=== PATIENT | male | born 1940 ===

== ENCOUNTER 2019-04-01 20:01 | Inpatient (IN) | payer MEDICARE, MEDICAID ==
[2019-04-01] VITALS (7 sets, daily range): BP systolic 131–155; BP diastolic 65–84
[~2019-04-01] VITALS: Ht 172.7 cm; Wt 60.3 kg
--- NOTE | 2019-04-01 20:15 | NUR ---
ICU/BAND SAW MARKER PT RECEIVED DIRECT ADMIT FROM [place]. PT WAS TRANSPORTED WITH DAUGHTER. PIERRE PAPERWORK PLACED IN CHART. SEE NURSING FLOWSHEET FOR ASSESSMENT. PT HAS 16 SKIN ISSUES WHICH WERE IDENTIFIED ALONE WITH INTERVENTIONS TO EACH. WOUND CONSULTATION WAS DONE. CONTACTED FOR ORDERS. WILL CONTINUE TO MONITOR THIS PT.
--- NOTE | 2019-04-01 20:30 | NUR ---
ICU/COMEDIAN UPON ARRIVAL TO UNIT PT SOUNDED CONGESTED. PT WAS DEEP SUCTIONED. THICK, WHITISH SPUTUM WAS SUCTIONED. WILL CONTINUE TO MONITOR THIS PT.
--- NOTE | 2019-04-01 22:00 | NUR ---
ICU/SOCIAL WORKER PSYCHIATRIC DAUGHTER GAVE HISTORY, THEN WENT HOME FOR THE EVENING. BUSINESS CARD PROVIDED. THEN TRIED TO ANSWERED ALL QUESTIONS TO THE BEST OF MY ABILITIES. DAUGHTER WILL BE BACK TOMORROW MORNING.
[2019-04-01] MEDS: IV NS 0.9% 1,000 ML IV PRN (22:21)
[2019-04-01] MEDS ORDERED: HYDROCODONE/APAP 5/325MG 1 EACH TABLET PO PRN (22:30)
[2019-04-01] MEDS ORDERED: MAG HYDROX/AL HYDROX/SIMETH 30 ML UDC PO PRN (22:30)
[2019-04-01] MEDS ORDERED: MAGNESIUM HYDROXIDE 30 ML UDC PO PRN (22:30)
[2019-04-01] MEDS ORDERED: Z GUARD REMEDY 2 OZ OINT TP PRN (22:30)
[2019-04-01] MEDS ORDERED: ONDANSETRON HCL/PF 4 MG/2 ML VIAL IVP PRN (22:30)
[2019-04-01] MEDS ORDERED: ZOLPIDEM TARTRATE 5 MG TABLET PO PRN (22:30)
[2019-04-01] MEDS ORDERED: DEXTROSE 50%-WATER 50 ML DISP.SYRIN IV PRN (22:30)
[2019-04-01] MEDS ORDERED: GLUCERNA 1.2 1,000 ML BOTTLE NG PRN (22:30)
--- NOTE | 2019-04-01 22:30 | NUR ---
ICU/BONE WORKER EKG DONE SHOWED SINUS TACHYCARDIA. WILL CONTINUE TO MONITOR THIS PT.
--- NOTE | 2019-04-01 23:00 | NUR ---
ICU/IRRIGATION FOREMAN PT CURRENTLY HAS G/TUBE, ORDERED FEEDING THEN ALSO ORDERED PT TO BE NPO. CALLED TO VERIFY ORDER. AWAIT FOR CALL BACK.
--- NOTE | 2019-04-01 23:20 | NUR ---
ICU/SOCIAL MEDIA INTERN VANCO 1GM WAS SCANNED AND HUNG UP BY CHARGE NURSE, THIS WAS THE FIRST DOSAGE. PHARMACY TO DOSE THE SECOND VANCO IN AM.
[2019-04-01] MEDS ORDERED: VANCOMYCIN 1 GM in IV D5W 250ml IV SCH (23:30)
--- NOTE | 2019-04-01 23:30 | NUR ---
ICU/WASHING AND SCREENING PLANT SUPERVISOR PT WAS GIVEN BREATHING TREATMENT THEN POST TREATMENT PT WAS DEEP SUCTIONED. THICK, WHITISH SPUTUM WAS SUCTIONED. WILL CONTINUE TO MONITOR THIS PT. PT WAS THEN TURNED AND REPOSITIONED FOR COMFORT AND CARE.
[2019-04-01] MEDS: ENOXAPARIN SODIUM 40 MG/0.4 ML DISP.SYRIN SQ SCH (23:33)
[2019-04-01] MEDS ORDERED: VANCOMYCIN 1 GM VIAL ONE (23:36)
[2019-04-01] MEDS: ACETYLCYSTEINE 10% SOLN 400 MG/4 ML VIAL NEB SCH (23:42)
[2019-04-01] MEDS: ALBUTEROL FS 2.5 MG/3 ML VIAL.NEB NEB SCH (23:42)
[2019-04-01] MEDS: IPRATROPIUM NEB FS 0.5 MG/2.5 ML AMPUL.NEB NEB SCH (23:42)
[2019-04-02] VITALS (26 sets, daily range): BP systolic 99–129; BP diastolic 50–78
--- NOTE | 2019-04-02 00:20 | NUR ---
ICU/EXCAVATION LABORER PT'S MIDNIGHT BLOOD SUGAR WAS DONE, IT WAS 159. THIS WAS COVERED WITH 2 UNITS REGULAR INSULIN. WILL CONTINUE TO MONITOR THE BLOOD SUGAR ORDERED MD AND HOSPITAL PROTOCOL. PT WAS TURNED AND REPOSITIONED FOR COMFORT AND CARE.
[2019-04-02] MEDS: BLOOD SUGAR DIAGNOSTIC 1 EACH STRIP IN SCH ×5 (01:38→23:49)
[2019-04-02] MEDS: INSULIN REGULAR, HUMAN 100 UNIT/ML 3 ML VIAL SQ PRN ×2 (01:39→06:16)
[2019-04-02] MEDS ORDERED: MEROPENEM 1 G in IV NS 0.9% 100 ML IV SCH ×2 (02:00→05:00)
[2019-04-02] MEDS ORDERED: MEROPENEM 1 G VIAL IV ONE (02:06)
--- NOTE | 2019-04-02 02:10 | NUR ---
ICU/SALVAGE LABORER MERREM 1GM WAS SCANNED AND HUNG UP BY CHARGE NURSE, THIS WAS THE FIRST DOSAGE. PHARMACY TO DOSE THE SECOND DOSAGE IN AM. PT WAS THEN TURNED AND REPOSITIONED FOR COMFORT AND CARE. NO ACUTE DISTRESS SEEN AT THIS TIME.
--- NOTE | 2019-04-02 02:40 | NUR ---
ICU/PAYROLL OFFICER URINE WAS COLLECTED FOR A URINE PROFILE & CULTURE. ALSO AT THIS TIME A MRSA OF RIGHT NARE WAS DONE. WELL A WOUND CULTURE TO THE LEFT HIP CULTURE WAS DONE. LAB CALLED TO BLOCK CUBER SPECIMEN.
[2019-04-02] MEDS: IPRATROPIUM NEB FS 0.5 MG/2.5 ML AMPUL.NEB NEB SCH ×6 (03:29→23:39)
[2019-04-02] MEDS: ACETYLCYSTEINE 10% SOLN 400 MG/4 ML VIAL NEB SCH ×6 (03:29→23:39)
[2019-04-02] MEDS: ALBUTEROL FS 2.5 MG/3 ML VIAL.NEB NEB SCH ×6 (03:30→23:39)
--- NOTE | 2019-04-02 04:30 | NUR ---
ICU/KETTLE CLEANER AM LABS WERE DONE ALONG WITH AM CHEST XRAY. AWAIT FOR ANY ABNORMAL LAB RESULTS.
[2019-04-02 04:52] LABS: EOSINOPHILS % (AUTO) 0.1 % (0.0-6.0); HEMATOCRIT 26 % (39-51); HEMOGLOBIN 8.4 g/dL (13.5-17.5); LYMPHOCYTES # (AUTO) 0.8 /CMM (0.8-4.8); LYMPHOCYTES % (AUTO) 2.9 % (20.0-44.0); MEAN CORPUSCULAR HGB CONC 33 g/dl (31.0-36.0); MEAN CORPUSCULAR VOLUME 93 fL (80-96); MONOCYTES % (AUTO) 7.6 % (2.0-12.0); NEUTROPHILS # (AUTO) 23.2 /CMM (1.8-8.9); NEUTROPHILS % (AUTO) 89.4 % (43.0-81.0); PLATELET COUNT (AUTO) 272 /CMM (150-450); RED BLOOD CELL COUNT(AUTO) 2.76 MIL/uL (4.5-6.0); WHITE BLOOD COUNT (AUTO) 25.9 K/uL (4.3-11.0)
[2019-04-02 05:04] LABS: APPEARANCE,URINE CLOUDY (CLEAR); BILIRUBIN,URINE NEGATIVE (NEGATIVE); BLOOD, URINE TRACE-INTA Ery/uL (NEGATIVE); COLOR,URINE YELLOW (YELLOW); KETONES,URINE NEGATIVE (NEGATIVE); LEUKOCYTE ESTERASE ,URINE NEGATIVE (NEGATIVE); NITRITE, URINE NEGATIVE (NEGATIVE); PH,URINE 5.5 (5.0-8.0); PROTEIN,URINE TRACE mg/dl (NEGATIVE); UGLUCOSE NEGATIVE (NEGATIVE); UROBILINOGEN,URINE 0.2 EU/dL (0.2)
[2019-04-02 05:15] LABS: BACTERIA,URINE Rare /HPF (None Seen); SQUAMOUS EPITHELIAL CELL,UR Rare /HPF (None Seen); URINE AMORPHOUS URATE Moderate /HPF (None Seen); WBC,URINE 0-2 /HPF (0-3)
--- NOTE | 2019-04-02 05:15 | NUR ---
ICU/ACCOUNT DEVELOPMENT SPECIALIST RT DID AM EKG, WHICH SHOWED SINUS TACHYCARDIA. WILL CONTINUE TO MONITOR THIS PT.
[2019-04-02 05:25] LABS: CALCIUM, SERUM 9.5 mg/dL (8.5-10.1); CREATININE 1.2 mg/dL (0.6-1.3); MAGNESIUM 2.2 mg/dL (1.8-2.4); PHOSPHORUS 3.4 mg/dL (2.5-4.9); POTASSIUM 4.3 mmol/L (3.5-5.1)
[2019-04-02 05:53] LABS: THYROID STIMULATING HORMONE 0.475 uIU/mL (0.358-3.74)
--- NOTE | 2019-04-02 06:48 | NUR ---
ICU/BRACELET FORM COVERER TWO SOCIAL SERVICE EVAL PLACED IN COMPUTER ONE FOR DAUGHTER WANTS PT TO GO BACK TO [place]. TWO PT'S DAUGHTER TO HAVE LEFT HIP WOUND VAC TO BE PLACED BACK ON.
[2019-04-02] MEDS: PANTOPRAZOLE 40 MG TABLET.DR PO SCH (07:30)
--- NOTE | 2019-04-02 07:30 | NUR ---
ICU/RN: Pt received, no distress, responds to name, laughs and attempts to communicate. Does not follow commands. Speech garbled and slurred; Hx of stroke. IVF infusing well. Will cont to monitor pt.
[2019-04-02] MEDS ORDERED: KETO200T3 GT (07:50)
[2019-04-02] MEDS ORDERED: ACET650S26 GT (07:50)
[2019-04-02] MEDS ORDERED: FOLI0.8T2 GT (07:50)
[2019-04-02] MEDS ORDERED: EPOE1VIA12 SQ (07:50)
[2019-04-02] MEDS ORDERED: VIT500LI GT (07:50)
[2019-04-02] MEDS ORDERED: HEPA50008 SQ (07:50)
[2019-04-02] MEDS ORDERED: METO5SOL GT (07:50)
[2019-04-02] MEDS ORDERED: FERR300L GT (07:50)
[2019-04-02] MEDS ORDERED: INSU100V10 SQ (07:50)
[2019-04-02] MEDS ORDERED: NUT.237L31 GT (07:50)
[2019-04-02] MEDS ORDERED: ACID1TAB12 GT (07:50)
[2019-04-02] MEDS ORDERED: HYDR-3802 GT (07:50)
[2019-04-02] MEDS ORDERED: MERO1VIA3 IV (07:50)
[2019-04-02] MEDS ORDERED: LEVA0.6320 IH (07:50)
[2019-04-02] MEDS ORDERED: FEE PK DOSING 1 MIN EA MC ONE (07:51)
--- NOTE | 2019-04-02 10:30 | NUR ---
ICU/RN: Dr Jean rounds; updated on pt status. No respiratory events overnight. Pt requires frequent suctioning dt large amount of secretions. MD orders to keep HOB elevated at 40 degrees.
[2019-04-02] MEDS: VANCOMYCIN 0.75 GM in IV D5W 250 ML IV SCH ×2 (11:51→23:02)
[2019-04-02 12:32] LABS: ABG BASE EXCESS 4.8 mmol/L; ABG OXYGEN SATURATION 96.7 % (92.0-98.5); ABG PCO2 45.4 mmHg (35.0-45.0); ABG PH 7.432 (7.350-7.450); ABG PO2 92.6 mmHg (75.0-100.0); AaDO2 82.4 mmHg; COHb 0.7 % (0.5-1.5); MetHb 0.4 % (0.0-1.5); O2Hb 95.6 % (94.0-97.0); SITE, ABG Left Radial; VENT MODE, BG N/C
--- NOTE | 2019-04-02 12:45 | NUR ---
ICU/RN: JAZMIN Gibbons at bedside; updated on pt status. Informed of abn labs, FC leakage, pt Hx, possible aspiration pna, pending med rec. Per RESET MERCHANDISER, continue to monitor FC, keep clean and dry dt pt Hx of prostate CA. RESET MERCHANDISER to review pt home meds.
[2019-04-02] MEDS: MEROPENEM 1 G in IV NS 0.9% 100 ML IV SCH (13:25)
--- NOTE | 2019-04-02 15:00 | NUR ---
ICU/RN: Bed bath, wound care rendered. KCI mattress applied. Tolerated well.
[2019-04-02] MEDS: GLUCERNA 1.2 1,000 ML BOTTLE NG PRN (16:58)
--- NOTE | 2019-04-02 18:00 | NUR ---
ICU/RN: CHLOE Solomon informed of DPOA request for pt to return to [facility] where patient previously received treatment if possible. DPOA updated.
--- NOTE | 2019-04-02 19:25 | NUR ---
ICU/AGRICULTURE SPECIALIST RECEIVED REPORT FROM DAY SHIFT NURSE. SEE FLOWSHEET FOR ASSESSMENT. ALSO THE MANY SKIN ISSUES THAT PT HAS AND THE INTERVENTION TO EACH. PT CURRENTLY HAS G/TUBE FEEDING, MONITORING CLOSELY THE RESIDUALS. PT WAS THEN TURNED AND REPOSITIONED FOR COMFORT AND CARE.
[2019-04-02] MEDS: IV NS 0.9% 1,000 ML IV PRN (19:44)
--- NOTE | 2019-04-02 22:10 | NUR ---
ICU/HAND RIVETER PT WAS GIVEN PM CARE, ALONG WITH ORAL CARE. PT TOLERATED THIS WELL. PT REMAINS ON 2 LITERS VIA N/C WITH SATURATION AT 98-100%. PT WAS TUNED AND REPOSITIONED FOR COMFORT AND CARE. WILL CONTINUE TO MONITOR THIS PT. DRESSINGS APPEARED TO CLEAN, WILL CHANGE DRESSING AT AM BATH. NO ACUTE DISTRESS SEEN.
[2019-04-02] MEDS: ENOXAPARIN SODIUM 40 MG/0.4 ML DISP.SYRIN SQ SCH (23:02)
[2019-04-03] VITALS (25 sets, daily range): BP systolic 97–141; BP diastolic 30–80
--- NOTE | 2019-04-03 00:15 | NUR ---
ICU/HEAD WAITRESS PT'S MIDNIGHT BLOOD SUGAR WAS DONE, IT WAS 106. THERE IS NO COVERAGE FOR THIS. WILL CONTINUE TO MONITOR THE BLOOD SUGAR ORDERED MD AND HOSPITAL PROTOCOL. PT WAS TURNED AND REPOSITIONED FOR COMFORT AND CARE.
[2019-04-03] MEDS: MEROPENEM 1 G in IV NS 0.9% 100 ML IV SCH ×2 (00:23→13:12)
--- NOTE | 2019-04-03 02:45 | NUR ---
ICU/AIRPORT MAINTENANCE CHIEF PT WAS GIVEN AM CARE, ALONG WITH ORAL CARE. PT TOLERATED THIS WELL. PT REMAINS ON 2 LITERS VIA N/C WITH SATURATION AT 98-100%. PT WAS TUNED AND REPOSITIONED FOR COMFORT AND CARE. WILL CONTINUE TO MONITOR THIS PT. DRESSINGS CHANGES WERE DONE AT THIS TIME. NO ACUTE DISTRESS SEEN AT THIS TIME. WILL CONTINUE TO MONITOR THIS PT.
[2019-04-03] MEDS: ACETYLCYSTEINE 10% SOLN 400 MG/4 ML VIAL NEB SCH ×5 (03:42→20:10)
[2019-04-03] MEDS: ALBUTEROL FS 2.5 MG/3 ML VIAL.NEB NEB SCH ×5 (03:42→20:10)
[2019-04-03] MEDS: IPRATROPIUM NEB FS 0.5 MG/2.5 ML AMPUL.NEB NEB SCH ×5 (03:43→20:10)
--- NOTE | 2019-04-03 04:05 | NUR ---
ICU/SUCTION PLATE CARRIER CLEANER AM LABS WERE DONE, AWAIT FOR ANY ABNORMAL LAB RESULTS.
[2019-04-03 04:51] LABS: BASOPHILS % (AUTO) 0.3 % (0.0-2.0); EOSINOPHILS % (AUTO) 2.5 % (0.0-6.0); HEMATOCRIT 24 % (39-51); HEMOGLOBIN 7.9 g/dL (13.5-17.5); LYMPHOCYTES # (AUTO) 1.4 /CMM (0.8-4.8); LYMPHOCYTES % (AUTO) 9.3 % (20.0-44.0); MEAN CORPUSCULAR HGB CONC 33 g/dl (31.0-36.0); MEAN CORPUSCULAR VOLUME 94 fL (80-96); MONOCYTES % (AUTO) 13.6 % (2.0-12.0); NEUTROPHILS # (AUTO) 10.8 /CMM (1.8-8.9); NEUTROPHILS % (AUTO) 74.3 % (43.0-81.0); PLATELET COUNT (AUTO) 227 /CMM (150-450); WHITE BLOOD COUNT (AUTO) 14.5 K/uL (4.3-11.0)
[2019-04-03 04:52] LABS: ABG BASE EXCESS 4.7 mmol/L; ABG OXYGEN SATURATION 94.8 % (92.0-98.5); ABG PCO2 47.6 mmHg (35.0-45.0); ABG PH 7.415 (7.350-7.450); ABG PO2 77.5 mmHg (75.0-100.0); COHb 0.1 % (0.5-1.5); MetHb 0.7 % (0.0-1.5); SITE, ABG Right Radial; VENT MODE, BG 2L N/C
[2019-04-03 04:58] LABS: CALCIUM, SERUM 9.3 mg/dL (8.5-10.1); CREATININE 0.9 mg/dL (0.6-1.3); MAGNESIUM 2.1 mg/dL (1.8-2.4)
--- NOTE | 2019-04-03 05:13 | NUR ---
ICU/BANK VAULT CUSTODIAN PT GET'S Q 4 HR BREATHING TREATMENT WITH ALBUTEROL, MUCOMYST, VENTOLIN. PT HAS RESPONDED TO THIS BY HAVING SOME MODERATE COUGHING EPISODES. CHARGE NURSE EXPRESSED CONCERN ABOUT THIS, BY ORDERING STAT ABG. RT DID ABG, RESULTS WERE GIVEN TO CHARGE NURSE. THERE WAS NO CONCERN TO CALL COMMERCIAL MANAGER MD TO OBTAIN NEW ORDERS. WILL CONTINUE TO MONITOR THIS PT AND HIS OXYGENATION.
[2019-04-03] MEDS: BLOOD SUGAR DIAGNOSTIC 1 EACH STRIP IN SCH ×3 (05:51→17:04)
--- NOTE | 2019-04-03 06:10 | NUR ---
ICU/TELEPHONE TRIAGE NURSE PT'S MORNING BLOOD SUGAR WAS DONE, IT WAS 88. THERE IS NO COVERAGE FOR THIS. WILL CONTINUE TO MONITOR THE BLOOD SUGAR ORDERED MD AND HOSPITAL PROTOCOL. PT WAS TURNED AND REPOSITIONED FOR COMFORT AND CARE. PT AT THIS TIME APPEARS TO BE MORE ALERT AND RESPONSIVE TO HIS SOUNDINGS. WILL CONTINUE TO MONITOR THIS PT.
[2019-04-03] MEDS: PANTOPRAZOLE 40 MG TABLET.DR PO SCH (08:02)
--- NOTE | 2019-04-03 10:46 | NUR ---
RN NOTES 07-RECEIVED PATIENT. PATIENT AWAKE, RESPONDS TO HIS NAME, STATES HE IS "AT HOME" WHEN ASKED WHERE IS HE AT. REMAISN TACHYCARIC, TACHYPNEIC, NOTED WITH COUGHING EPOSIODES TIME TO TIME, HE DENIES DYSPNEA, SATURATION UP TO 98% ON 2 LPM/NC. GT FEEDINGS ONGOING 929-SEEN BY DR. INES MD UPDATED OF PATIENT STATUS.
[2019-04-03] MEDS: VANCOMYCIN 0.75 GM in IV D5W 250 ML IV SCH ×2 (11:31→17:47)
[2019-04-03] MEDS: IV NS 0.9% 1,000 ML IV PRN (13:19)
--- NOTE | 2019-04-03 13:21 | NUR ---
RN NOTES 1200-SEEN BY JAZMIN DEL VALLE EARLIER. PATIENT AWAKE, ALERT, NOTED WITH SOME COUGHING EPISODES, ORAL CARE DONE. ,PO AWARE. SHE DISCUSSED PLAN POF CARE WITH DR CHACON AFTER RELAYING PATIENT DAUGHTER'S WISH TO TRANSFER PATIENT TO [facility]. 1300-WOUND CARE DONE PATIENT SAFETY MAINTAINED, HE TOLERATED PROCEDURE WELL..SACRAL, LEFT HIP WOUNDS PINKISH IN COLOR.PATIENT REPOSITIONED SAFELY. ACCUCHECKS DONE, NO COVERAGE
--- NOTE | 2019-04-03 13:32 | NUR ---
RN NOTES PATIENT DAUGHTER KODI [phone] CALLED FOR UPDATE. INFORMED HER OF PATIENT STATUS, PENDING TRANSFER OUT OF ICU
--- NOTE | 2019-04-03 16:18 | NUR ---
RN NOTES 1600-PATIENT AWAKE, ALERT, ABLE TO STATE THAT VISITOR IS HIS . STATES THAT PATIENT IS "BETTER" THAN DAYS BEFORE HE IS ABLE TO "TALK MORE".
--- NOTE | 2019-04-03 19:15 | NUR ---
RN NOTES PATIENT AWAKE, ALERT, ORAL CARE DONE AFTER SUCTIONING. REPORT GIVEN TO RN FOR FURTHER CARE
--- NOTE | 2019-04-03 19:30 | NUR ---
SERVICE SUPERVISOR INITIAL SHIFT NOTES RECEIVED PATIENT IN BED, AWAKE, ALERT AND ORIENTED X1 TO SELF, RESPONDS TO NAME, ABLE FOLLOW SIMPLE COMMANDS. BREATHING EVEN AND NONLABORED, ON O2 VIA NC @ 2LPM, TOLERATING WELL, NOTED TO HAVE PRODUCTIVE COUGH, ORAL SECRETIONS THICK, MATIAS COLORED, MOUTH SUCTIONED FOR AIRWAY CLEARANCE. BEDSIDE PORTABLE SAWYER SHOWS SIMUS TACHYCARDIA, HR CURRENTLY 104 BPM. CRUZ CATHETER PATENT AND INTACT, DRAINING CLEAR YELLOW URINE WITH MINIMAL SEDIMENTS VIA GRAVITY. BILATERAL UPPER AND LOWER EXTREMITIES CONTRACTED, PILLOWS USED TO OFFLOAD BONY PROMINENCES. HOB KEPT @ 40 DEGREES, STRICT ASPIRATION PRECAUTIONS OBSERVED. WILL CONTINUE TO CLOSELY MONITOR THE PATIENT
--- NOTE | 2019-04-03 22:00 | NUR ---
TRANSFER DRIVER NOTES PATIENT SEVERELY CONTRACTED ON BILATERAL UPPER AND LOWER EXTREMITIES. PATIENT REPOSITIONED CAREFULLY, BONY PROMINENCES OFFLOADED WITH PILLOWS. WOUND DRESSING REMAIN INTACT. WILL CONTINUE TO MONITOR
[2019-04-04] VITALS (20 sets, daily range): BP systolic 113–149; BP diastolic 49–98
[2019-04-04] MEDS: MEROPENEM 1 G in IV NS 0.9% 100 ML IV SCH ×2 (00:05→12:29)
[2019-04-04] MEDS: BLOOD SUGAR DIAGNOSTIC 1 EACH STRIP IN SCH ×5 (00:08→23:38)
[2019-04-04] MEDS: ENOXAPARIN SODIUM 40 MG/0.4 ML DISP.SYRIN SQ SCH ×2 (00:09→23:38)
[2019-04-04] MEDS: ACETYLCYSTEINE 10% SOLN 400 MG/4 ML VIAL NEB SCH ×7 (00:10→23:03)
[2019-04-04] MEDS: IPRATROPIUM NEB FS 0.5 MG/2.5 ML AMPUL.NEB NEB SCH ×7 (00:10→23:03)
[2019-04-04] MEDS: ALBUTEROL FS 2.5 MG/3 ML VIAL.NEB NEB SCH ×7 (00:10→23:03)
[2019-04-04] MEDS: ACETAMINOPHEN 325 MG TABLET PO PRN (00:37)
--- NOTE | 2019-04-04 04:00 | NUR ---
PRESS OPERATOR APPRENTICE NOTES FULL BED BATH RENDERED, PATIENT TOLERATED WELL, NO EPISODES OF DESATURATION OR RESPIRATORY DISTRESS, CONTINUE TON O2 VIA NC @ 2LPM. ALL WOUND CARE PERFORMED, TOLERATED WELL
[2019-04-04 04:51] LABS: BASOPHILS % (AUTO) 0.4 % (0.0-2.0); EOSINOPHILS % (AUTO) 3.2 % (0.0-6.0); HEMATOCRIT 23 % (39-51); HEMOGLOBIN 7.7 g/dL (13.5-17.5); LYMPHOCYTES # (AUTO) 1.4 /CMM (0.8-4.8); LYMPHOCYTES % (AUTO) 12.3 % (20.0-44.0); MEAN CORPUSCULAR HGB CONC 33 g/dl (31.0-36.0); MEAN CORPUSCULAR VOLUME 93 fL (80-96); MONOCYTES # (AUTO) 1.5 /CMM (0.1-1.30); NEUTROPHILS % (AUTO) 71.1 % (43.0-81.0); PLATELET COUNT (AUTO) 236 /CMM (150-450); RED BLOOD CELL COUNT(AUTO) 2.51 MIL/uL (4.5-6.0); WHITE BLOOD COUNT (AUTO) 11.3 K/uL (4.3-11.0)
[2019-04-04 05:12] LABS: CALCIUM, SERUM 8.9 mg/dL (8.5-10.1); CREATININE 0.8 mg/dL (0.6-1.3); MAGNESIUM 1.8 mg/dL (1.8-2.4); PHOSPHORUS 2.3 mg/dL (2.5-4.9); POTASSIUM 3.4 mmol/L (3.5-5.1)
[2019-04-04] MEDS: VANCOMYCIN 0.75 GM in IV D5W 250 ML IV SCH ×2 (05:35→23:37)
--- NOTE | 2019-04-04 07:00 | NUR ---
CLERK MANAGER NOTE PATIENT ENDORSED TO THE AM SHIFT NURSE FOR CONTINUITY OF CARE. NO ACUTE EVENTS THROUGHOUT THE SHIFT. PATIENT SUCTION ORALLY FREQUENTLY FOR AIRWAY CLEARANCE, NOTED WITH THICK MATIAS SECRETIONS.
--- NOTE | 2019-04-04 08:00 | NUR ---
ICU/RN AM SHIFT INITIAL NOTES RECEIVED PT ASLEEP IN BED, EASILY AROUSED, PT ALERT, RESPONSE TO NAME, MUMBLED WORDS, FOLLOWS SIMPLE COMMANDS. NO ACUTE RESPIRATORY DISTRESS. ON 2L O2 VIA N/C SATURATING @ 100%, LUNG SOUNDS DIMINISHED, RESPIRATIONS EVEN AND UNLABORED, SINUS RHYTHM, HR 97. WITH ON GOING IV INFUSION OF NS @ 75CC/HR, MID-LINE PATENT WITH NO S/S OF INFECTION. GT FEEDING ON GOING @ 30CC/HR, NO GASTRIC RESIDUAL, FLUSHED, PATENT. CRUZ CATHETER INTACT WITH YELLOW URINE OUTPUT. PT IS COMFORTABLE, SCHEDULED AM MEDS TO BE GIVEN. CL WITHIN REACHED AND SAFETY MAINTAINED. ON GOING MONITORING. Addendum: 04/04/19 at 0851 by ABRAHAM MARTÍNEZ RN ADDENDUM: ON GOING INFUSION OF NS HELD, D/T RESULT OF AM LAB INCREASED LEVEL OF SODIUM (153). WILL FOLLOW-UP WITH PRIMARY, CHARGE NURSE AWARE.
[2019-04-04] MEDS: PANTOPRAZOLE 40 MG TABLET.DR PO SCH (08:53)
[2019-04-04] MEDS ORDERED: NEUTRA PHOS 1 POWD.PACKET NG ONE (09:00)
--- NOTE | 2019-04-04 09:30 | NUR ---
ICU/THERAPEUTIC MASSAGE TECHNICIAN CONSULT PT SEEN & EXAMINED BY CREAM BUYER FOR WOUND EVALUATION WITH PT'S DAUGHTER AT BEDSIDE. AWAITING FOR WOUND TREATMENT ORDERS. MONITORING CONTINUED.
[2019-04-04] MEDS: IV D5W 1,000 ML IV PRN (09:53)
--- NOTE | 2019-04-04 10:00 | NUR ---
ICU/RN OF TO CT CHEST PT LEFT VIA BED FOR CT OF THE CHEST IN STABLE CONDITION. Addendum: 04/04/19 at 1155 by ABRAHAM MARTÍNEZ RN ADDENDUM: PT TOLERATED PROCEDURE, RETURNED TO ICU UNIT, CARE RESUMED.
[2019-04-04] MEDS: INSULIN REGULAR, HUMAN 100 UNIT/ML 3 ML VIAL SQ PRN (12:51)
--- NOTE | 2019-04-04 13:42 | NUR ---
ICU/CORRECTIONAL OFFICER CAPTAIN PROCEDURE CONSENT WOUND DEBRIDEMENT PROCEDURE CONSENTS OBTAINED FROM PT'S DAUGHTER, WOUND MDs NOTIFIED.
[2019-04-04] MEDS ORDERED: LIDOCAINE 1%-EPI 1:100,000 20 ML VIAL TP ONE (15:30)
[2019-04-04] MEDS: DAKINS QUARTER STRENGTH (0.125%) 480 ML BOTTLE TOP SCH (15:42)
[2019-04-04] MEDS: GLUCERNA 1.2 1,000 ML BOTTLE NG PRN (16:39)
--- NOTE | 2019-04-04 17:30 | NUR ---
ICU/RN ROUNDS - Anya CHACKO PT SEEN & EXAMINED BY DR. AGUILAR. PER MD WILL ORDER ABDOMINAL SCAN FOR THE PROTRUDING UMBILICAL REGION.
--- NOTE | 2019-04-04 17:49 | NUR ---
ICU/NANOTECHNOLOGY TECHNICIAN DEBRIDEMENT - LOWER LEFT EXTREMITY PT BEING SEEN BY NICOLE BARNES AT BEDSIDE PERFORMING WOUND DEBRIDEMENT.
--- NOTE | 2019-04-04 19:00 | NUR ---
ICU/RN DOWN GRADED - LILLIE PT LEFT UNIT VIA BED IN STABLE CONDITION. CARE RESUMED.
--- NOTE | 2019-04-04 19:36 | NUR ---
TD/RN AM SHIFT END NOTES ALL NEEDS MET, NO ACUTE CHANGE OF CONDITION NOTED DURING THE SHIFT. PT ENDORSED TO PM NURSE TO CONTINUE CARE. CL WITHIN REACHED AND SAFETY MAINTAINED.
--- NOTE | 2019-04-04 19:43 | NUR ---
RN NOTE CALLED DAUGHTER KODI AT TO GET CONSENT FOR CT SCAN OF THE ABDOMEN/PELVIC, AWAITING FOR CALL BACK
[2019-04-05] VITALS (7 sets, daily range): BP systolic 101–137; BP diastolic 49–80
[2019-04-05] MEDS: MEROPENEM 1 G in IV NS 0.9% 100 ML IV SCH ×2 (00:43→12:11)
[2019-04-05] MEDS: IV D5W 1,000 ML IV PRN ×2 (01:11→21:43)
[2019-04-05] MEDS: IPRATROPIUM NEB FS 0.5 MG/2.5 ML AMPUL.NEB NEB SCH ×6 (03:42→23:53)
[2019-04-05] MEDS: ACETYLCYSTEINE 10% SOLN 400 MG/4 ML VIAL NEB SCH ×6 (03:42→23:53)
[2019-04-05] MEDS: ALBUTEROL FS 2.5 MG/3 ML VIAL.NEB NEB SCH ×6 (03:43→23:53)
[2019-04-05] MEDS: ACETAMINOPHEN 325 MG TABLET PO PRN (05:21)
[2019-04-05] MEDS: BLOOD SUGAR DIAGNOSTIC 1 EACH STRIP IN SCH ×3 (05:22→17:35)
[2019-04-05] MEDS: INSULIN REGULAR, HUMAN 100 UNIT/ML 3 ML VIAL SQ PRN ×2 (05:23→18:39)
[2019-04-05 06:41] LABS: CALCIUM, SERUM 8.7 mg/dL (8.5-10.1); CREATININE 0.7 mg/dL (0.6-1.3); MAGNESIUM 1.8 mg/dL (1.8-2.4); PHOSPHORUS 2.3 mg/dL (2.5-4.9); POTASSIUM 3.4 mmol/L (3.5-5.1)
[2019-04-05 06:43] LABS: BASOPHILS % (AUTO) 0.2 % (0.0-2.0); EOSINOPHILS % (AUTO) 2.4 % (0.0-6.0); HEMATOCRIT 26 % (39-51); HEMOGLOBIN 8.8 g/dL (13.5-17.5); LYMPHOCYTES # (AUTO) 1.2 /CMM (0.8-4.8); LYMPHOCYTES % (AUTO) 12.1 % (20.0-44.0); MEAN CORPUSCULAR HGB CONC 34 g/dl (31.0-36.0); MEAN CORPUSCULAR VOLUME 92 fL (80-96); MONOCYTES # (AUTO) 1.1 /CMM (0.1-1.30); MONOCYTES % (AUTO) 11.5 % (2.0-12.0); NEUTROPHILS # (AUTO) 7.3 /CMM (1.8-8.9); NEUTROPHILS % (AUTO) 73.8 % (43.0-81.0); PLATELET COUNT (AUTO) 224 /CMM (150-450); RED BLOOD CELL COUNT(AUTO) 2.81 MIL/uL (4.5-6.0); WHITE BLOOD COUNT (AUTO) 9.9 K/uL (4.3-11.0)
--- NOTE | 2019-04-05 07:30 | NUR ---
LILLIE RN NOTES RECEIVED PT IN BED, ON 2L NC. O2 SAT WNL. NO S/SX OF RESP DISTRESS. HOB ELEVATED AT 40 DEG. ON TELE SR/ST. CRUZ CATH IN PLACE DRAINING YELLOW URINE. GLUCERNA RUNNING AT 40 ML/HR VIA GTUBE. PT TOLERATING FEEDING WELL WITH NO S/SX OF N/V. JAYA MINDLINE AND R HAND #22G FLUSHING WELL/PATENT. SAFETY MEASURES IN PLACE. CALL LIGHT IN REACH. WILL CONT TO MONITOR.
[2019-04-05] MEDS: PANTOPRAZOLE 40 MG TABLET.DR PO SCH (09:29)
[2019-04-05] MEDS: DAKINS QUARTER STRENGTH (0.125%) 480 ML BOTTLE TOP SCH (09:35)
[2019-04-05] MEDS ORDERED: POTASSIUM CHLORIDE 20 MEQ POWDER PACKET GT SCH (11:30)
[2019-04-05] MEDS ORDERED: NEUTRA PHOS 1 POWD.PACKET GT ONE (12:30)
[2019-04-05] MEDS ORDERED: IOHEXOL-300 100 ML VIAL IV ONE (14:02)
[2019-04-05] MEDS ORDERED: CT SWABBABLE VALVE TRANS SET 1 EA INFUS.SET MC ONE (14:02)
[2019-04-05] MEDS ORDERED: IV NS 0.9% 250 ML IV ONE (14:02)
[2019-04-05] MEDS: VANCOMYCIN 0.75 GM in IV D5W 250 ML IV SCH (17:11)
--- NOTE | 2019-04-05 18:28 | NUR ---
MS RN NOTES PT ON 2L NC; TOLERATING WELL. CT IMAGES OF ABD/PELVIS SENT TO JAZMIN ABREU. ORDERED ZOSYN. HOB ELEVATED AT [address] DRAINING URINE. TOLERATING GT FEEDING WELL. WILL ENDORSE TO PM NURSE FOR MITESH.
[2019-04-05] MEDS: PIPERACILLIN /TAZOBACTAM 3.375 G in IV D5W 50 ML IV SCH (18:40)
[2019-04-06] MEDS: PIPERACILLIN /TAZOBACTAM 3.375 G in IV D5W 50 ML IV SCH ×3 (00:03→12:17)
[2019-04-06] MEDS: MEROPENEM 1 G in IV NS 0.9% 100 ML IV SCH ×2 (00:03→13:21)
[2019-04-06] MEDS: BLOOD SUGAR DIAGNOSTIC 1 EACH STRIP IN SCH ×5 (00:03→23:35)
[2019-04-06] MEDS: ENOXAPARIN SODIUM 40 MG/0.4 ML DISP.SYRIN SQ SCH ×2 (00:04→23:35)
[2019-04-06] MEDS: GLUCERNA 1.2 1,000 ML BOTTLE NG PRN (01:11)
[2019-04-06] MEDS: IPRATROPIUM NEB FS 0.5 MG/2.5 ML AMPUL.NEB NEB SCH ×6 (03:26→23:06)
[2019-04-06] MEDS: ALBUTEROL FS 2.5 MG/3 ML VIAL.NEB NEB SCH ×6 (03:26→23:06)
[2019-04-06] MEDS: ACETYLCYSTEINE 10% SOLN 400 MG/4 ML VIAL NEB SCH ×5 (03:26→23:06)
[2019-04-06 04:00] VITALS: BP 116/42
[2019-04-06] MEDS: INSULIN REGULAR, HUMAN 100 UNIT/ML 3 ML VIAL SQ PRN ×2 (06:15→12:44)
[2019-04-06 06:23] LABS: BASOPHILS % (AUTO) 0.2 % (0.0-2.0); EOSINOPHILS % (AUTO) 1.6 % (0.0-6.0); HEMATOCRIT 26 % (39-51); HEMOGLOBIN 8.9 g/dL (13.5-17.5); LYMPHOCYTES # (AUTO) 1.4 /CMM (0.8-4.8); LYMPHOCYTES % (AUTO) 12.8 % (20.0-44.0); MEAN CORPUSCULAR HGB CONC 34 g/dl (31.0-36.0); MEAN CORPUSCULAR VOLUME 91 fL (80-96); MONOCYTES # (AUTO) 1.2 /CMM (0.1-1.30); NEUTROPHILS # (AUTO) 7.9 /CMM (1.8-8.9); NEUTROPHILS % (AUTO) 74.4 % (43.0-81.0); PLATELET COUNT (AUTO) 240 /CMM (150-450); RED BLOOD CELL COUNT(AUTO) 2.89 MIL/uL (4.5-6.0); WHITE BLOOD COUNT (AUTO) 10.6 K/uL (4.3-11.0)
[2019-04-06 06:50] LABS: CALCIUM, SERUM 8.5 mg/dL (8.5-10.1); CREATININE 0.8 mg/dL (0.6-1.3); MAGNESIUM 1.6 mg/dL (1.8-2.4); PHOSPHORUS 3.2 mg/dL (2.5-4.9); POTASSIUM 3.7 mmol/L (3.5-5.1)
--- NOTE | 2019-04-06 07:25 | NUR ---
RN OPENING NOTES RECEIVED PATIENT AWAKE AND RESTING IN BED COMFORTABLY. HE IS AOX1 (NAME), VERBAL, BEDBOUND. HE IS ON 2L OF O2 VIA NC, TOLERATING WELL, SHOWS NO S/SX OF RESP DISTRESS OR SOB. CRUZ IS INTACT AND PATENT, CLEAR AND YELLOW URINE. MULTIPLE WOUNDS THROUGHOUT BODY, WILL FOLLOW WOUND CARE ORDERS NEEDED. PT IS RECEIVING GLUCERNA AT A GOAL RATE OF 40ML/HR, NO RESIDUAL. JAYA MIDLINE INFUSING D5W AT 80 ML/HR. R HAND 22 G INTACT. SAFETY MEASURES HAVE BEEN IMPLEMENTED, CALL LIGHT IS WITHIN REACH, BED IS IN LOWEST AND LOCKED POSITION, SIDE RAILS UP X2, WILL CONTINUE TO MONITOR FOR ANY CHANGES.
[2019-04-06] MEDS: PANTOPRAZOLE 40 MG TABLET.DR PO SCH (07:29)
[2019-04-06 08:00] VITALS: BP 120/66
[2019-04-06] MEDS: DAKINS QUARTER STRENGTH (0.125%) 480 ML BOTTLE TOP SCH (09:44)
--- NOTE | 2019-04-06 09:59 | NUR ---
WOUND CARE CONSULT WOUND CARE RECEIVED CONSULT FOR MULTIPLE WOUNDS. WOUND CARE WILL DEFER CONSULT AND ALL TREATMENT PLANS TO PLASTIC SURGICAL TEAM INCLUDING DPM DR LOTT WHO ARE ALL FOLLOWING THIS PATIENT. PATIENT WITH ARIELLA AT 10, ALL PRESSURE ULCER PREVENTION MEASURES ARE NOTED TO BE IN PLACE AT THIS TIME. WILL SEE PRN.
--- NOTE | 2019-04-06 11:30 | NUR ---
JANETO TROUGH IS 19, CALLED PHARMACY, GAVE OK TO GIVE DOSE, WILL MONITOR
[2019-04-06] MEDS: VANCOMYCIN 0.75 GM in IV D5W 250 ML IV SCH (12:17)
[2019-04-06] MEDS: Magnesium 1GM/D5W 100ML PREMIX 100 ML IV SCH ×2 (12:35→13:43)
[2019-04-06] MEDS: PROSOURCE / PROSTAT (PYXIS) 30 ML UDC GT SCH ×2 (12:41→17:49)
[2019-04-06] MEDS ORDERED: LIDOCAINE 1%-EPI 1:100,000 20 ML VIAL TP STA (14:57)
[2019-04-06 16:00] VITALS: BP 100/60
[2019-04-06] MEDS: IV D5W 1,000 ML IV PRN (16:42)
--- NOTE | 2019-04-06 19:34 | NUR ---
RN CLOSING NOTES PATIENT IS RESTING IN BED COMFORTABLY AT THIS TIME. HE DOES NOT SHOW ANY S/SX OF DISCOMFORT PAIN OR SOB. PT NEEDS HAVE BEEN MET, HE IS IN STABLE CONDITION. TOLERATING TUBE FEEDING WELL. NO ACUTE CHANGES OCCURRED THROUGHOUT THE SHIFT. SAFETY MEASURES HAVE BEEN IMPLEMENTED, CALL LIGHT IS WITHIN REACH, BED IS IN LOWEST AND LOCKED POSITION, SIDE RAILS UP X2, PT HAS BEEN ENDORSED TO NIGHTSHIFT RN FOR CONTINUITY OF CARE.
--- NOTE | 2019-04-06 19:40 | NUR ---
MS-1/SORT OPERATIONS SUPERVISOR RECEIVED A CALL FROM RADIOLOGIST DR. ZAVALA REGARDING CT RESULTS OF SUSPECTED APPENDICITIS. RESULTS RELAYED TO DR. VANCE @1944 NEW ORDERS RECEIVED TO KEEP PT NPO, CONTINUE ABX AND CALL DR. ALVAREZ FOR SURGERY CONSULT. MESSAGE LEFT WITH DR. ALVAREZ'S ANSWERING SERVICE @1952 AWAITING CALL BACK. WILL CONTINUE TO MONITOR THE PT CLOSELY.
[2019-04-06 20:00] VITALS: BP 119/59
--- NOTE | 2019-04-06 22:20 | NUR ---
MS-1/CORE PLACER SPOKE WITH DR. ALVAREZ NO NEW ORDERS WILL CONTINUE TO MONITOR PT.
[2019-04-07] MEDS: MEROPENEM 1 G in IV NS 0.9% 100 ML IV SCH ×2 (01:17→13:10)
[2019-04-07] MEDS: ACETYLCYSTEINE 10% SOLN 400 MG/4 ML VIAL NEB SCH ×6 (03:54→22:39)
[2019-04-07] MEDS: ALBUTEROL FS 2.5 MG/3 ML VIAL.NEB NEB SCH ×6 (03:54→22:39)
[2019-04-07] MEDS: IPRATROPIUM NEB FS 0.5 MG/2.5 ML AMPUL.NEB NEB SCH ×6 (03:54→22:39)
[2019-04-07 04:00] VITALS: BP 124/76
[2019-04-07 04:09] VITALS: BP 124/76
[2019-04-07] MEDS: BLOOD SUGAR DIAGNOSTIC 1 EACH STRIP IN SCH ×4 (05:55→23:55)
[2019-04-07 07:27] LABS: BASOPHILS % (AUTO) 0.3 % (0.0-2.0); HEMATOCRIT 25 % (39-51); HEMOGLOBIN 8.2 g/dL (13.5-17.5); LYMPHOCYTES # (AUTO) 1.1 /CMM (0.8-4.8); LYMPHOCYTES % (AUTO) 12.5 % (20.0-44.0); MEAN CORPUSCULAR HGB CONC 33 g/dl (31.0-36.0); MEAN CORPUSCULAR VOLUME 92 fL (80-96); MONOCYTES # (AUTO) 1.1 /CMM (0.1-1.30); MONOCYTES % (AUTO) 12.6 % (2.0-12.0); NEUTROPHILS # (AUTO) 6.3 /CMM (1.8-8.9); NEUTROPHILS % (AUTO) 72.6 % (43.0-81.0); PLATELET COUNT (AUTO) 255 /CMM (150-450); RED BLOOD CELL COUNT(AUTO) 2.68 MIL/uL (4.5-6.0); WHITE BLOOD COUNT (AUTO) 8.6 K/uL (4.3-11.0)
[2019-04-07] MEDS: PANTOPRAZOLE 40 MG TABLET.DR PO SCH (07:30)
--- NOTE | 2019-04-07 07:31 | NUR ---
MS RN NOTES RECEIVED PT SLEEPING IN BED, ABLE TO AROUSE WHEN NAME CALLED, A/O X1. NO SOB OR DISCOMFORT NOTED AT THIS TIME. PT HAS RU MIDLINE D5W 80ML/RUNNING AND RIGHT FOREARM SL PATENT FLUSHED WITH NS WELL. NO RESIDUAL NOTED AT GT. URINE OUTPUT 50 ML CRUZ CATHETER. ALL SAFETY MEASURES OBSERVED. BED AT THE LOWEST POSITION LOCKED, SIDE RAILS UP , CALL LIGHT WITHIN REACH. PT NPO FOR POSSIBLE PROCEDURE. WILL CONTINUE TO MONITOR.
[2019-04-07 07:40] LABS: CALCIUM, SERUM 8.5 mg/dL (8.5-10.1); CREATININE 0.8 mg/dL (0.6-1.3); PHOSPHORUS 3.3 mg/dL (2.5-4.9); POTASSIUM 3.5 mmol/L (3.5-5.1)
[2019-04-07 08:00] VITALS: BP 131/63
[2019-04-07] MEDS: DAKINS QUARTER STRENGTH (0.125%) 480 ML BOTTLE TOP SCH (09:00)
[2019-04-07] MEDS: PROSOURCE / PROSTAT (PYXIS) 30 ML UDC GT SCH ×2 (09:00→18:34)
--- NOTE | 2019-04-07 09:02 | NUR ---
MS RN NOTES PER ORDER PT ON NPO. MED HELD FOR 0730 AND 0900. WILL FOLLOW UP WITH PHYSICIAN FOR CONTINUATION OF NPO.
[2019-04-07] MEDS: IV D5W 1,000 ML IV PRN (11:15)
[2019-04-07] MEDS ORDERED: VANCOMYCIN 0.75 GM in IV D5W 250 ML IV SCH (12:00)
[2019-04-07 16:00] VITALS: BP 115/61
--- NOTE | 2019-04-07 17:50 | NUR ---
MS RN NOTES CHECKED THE PT BLOOD GLUCOSE LEVEL AND RESULT WAS 136. HELD THE 2 UNIT OF INSULIN TILL OBTAIN THE RESUMING GLUCERNA1.[address] GAMBINO[address]
--- NOTE | 2019-04-07 18:00 | NUR ---
MS RN NOTES CLOSING PT IN BED SLEEPING , ABUSABLE WHEN NAME CALLED. D5 STOPPED AND GLUCERNA [address] GAMBINO ORDER TO RESUME FEEDING. NO SIGN OF SOB AND DISCOMFORT NOTED AT THIS TIME. ALL NEEDS ATTENDED. NO RESIDUAL NOTED FROM GT, PATENT, FLUSHED ,AUSCULTATED. IV LINE AND MIDLINE PATENT AND FLUSHED WITH NORMAL SALINE. ALL SAFETY MEASURES OBSERVED, BED AT THE LOWEST POSITION LOCKED, SIDE RAILS UP X4. CALL LIGHT WITHIN REACH, HOB 40 DEGREE. PT POSITIONED TO OFFLOAD AND IMPROVE WOUND HEALING. DAUGHTER VISITED TODAY AND SHE WAS CONCERN TO TRANSFER HER FATHER TO [facility]. COLLABORATED WITH BOTANY TECHNICIAN TEZ ABOUT THE ISSUE AND BOTANY TECHNICIAN NOTIFIED THAT INTERVENTIONS IMPLEMENTED FOR THE TRANSFER. TRANSFER IS ON HOLD TO RR/O TB. ENDORSED TO THE AGRICULTURE SCIENCE TEACHER FOR MITESH.
[2019-04-07] MEDS: GLUCERNA 1.2 1,000 ML BOTTLE NG PRN (18:57)
[2019-04-07 20:00] VITALS: BP 108/58
--- NOTE | 2019-04-07 20:12 | NUR ---
RN INITIAL TELE NOTE RECIEVED PT ON VENT SETTINGS, WELL TOLERATED, NO SIGN OF DISTRESS OR PAIN NOTED, ON GOING DIALYSIS WITH PRBC TRANSFUSION 1 UNIT @ RCW CATH, NON FUNCTIONAL LAV FISTULA, JAYA MIDLINE PATENT WITH TKO RUNNING, GTUBE WITH NEPRO@55ML/HR, GOAL 18 HRS, WELL TOLERATED NO RESIDUAL AT THIS TIME, MULTIPLE WOUNDS NOTED, FOLLOW TX ORDERS, KEEP CLEAN AND DRY, REPOSITION QS.
[2019-04-08] MEDS: MEROPENEM 1 G in IV NS 0.9% 100 ML IV SCH ×2 (00:06→13:33)
[2019-04-08] MEDS: ENOXAPARIN SODIUM 40 MG/0.4 ML DISP.SYRIN SQ SCH (00:07)
[2019-04-08] MEDS: ALBUTEROL FS 2.5 MG/3 ML VIAL.NEB NEB SCH ×6 (03:42→23:56)
[2019-04-08] MEDS: ACETYLCYSTEINE 10% SOLN 400 MG/4 ML VIAL NEB SCH ×6 (03:42→23:56)
[2019-04-08] MEDS: IPRATROPIUM NEB FS 0.5 MG/2.5 ML AMPUL.NEB NEB SCH ×6 (03:42→23:56)
[2019-04-08] MEDS: BLOOD SUGAR DIAGNOSTIC 1 EACH STRIP IN SCH ×3 (06:16→17:45)
--- NOTE | 2019-04-08 06:58 | NUR ---
MS RN CLOSING NOTE RECEIVED PATENT IN BED AT 0400. AROUSABLE WHEN NAME CALLED. ON OXYGEN 2L/MIN VIA NASAL CANNULA. RESPIRATIONS ARE EVEN AND UNLABORED. NO SIGNS OF SOB. DENIES PAIN. IN NO APPARENT DISTRESS THROUGHOUT SHIFT. IV ACCESS IN JAYA MIDLINE PATENT AND SALINE LOCKED. GTUBE IS MAINTAINED, NO RESIDUAL, POSITIVE PLACEMENT, RUNNING GLUCERNA 1.2 @40ML/HR. CRUZ CATHETER PRESENT AND MAINTAINED, DRAINING TO GRAVITY, URINE IS ORANGE. URINE OUTPUT 700 ML. BED IS LOW AND LOCKED, SIDE RAILS UP X2, HOB ELEVATED 40 DEGREES. ALL NURSING NEEDS MET, TURNED AND REPOSITIONED Q2HR. CALL LIGHT WITHIN REACH. WILL ENDORSE TO NEXT SHIFT FOR MITESH.
--- NOTE | 2019-04-08 07:30 | NUR ---
INITIAL RECEIVED PATENT IN BED AROUSABLE WHEN NAME CALLED. ON OXYGEN 2L/MIN VIA NASAL CANNULA. RESPIRATIONS ARE EVEN AND UNLABORED. NO SIGNS OF SOB. DENIES PAIN. IN NO APPARENT DISTRESS . IV ACCESS IN JAYA MIDLINE PATENT AND SALINE LOCKED. GTUBE IS MAINTAINED, NO RESIDUAL, POSITIVE PLACEMENT, NPO. CRZU CATHETER PRESENT AND MAINTAINED, DRAINING TO GRAVITY, URINE IS ORANGE. URINE OUTPUT 300 ML. BED IS LOW AND LOCKED, SIDE RAILS UP X2, HOB ELEVATED 40 DEGREES. TURNED AND REPOSITIONED . CALL LIGHT WITHIN REACH. WILL CONTINUE TO MONITOR
[2019-04-08 08:00] VITALS: BP 138/70
[2019-04-08 08:29] LABS: BASOPHILS % (AUTO) 0.2 % (0.0-2.0); EOSINOPHILS % (AUTO) 1.7 % (0.0-6.0); HEMATOCRIT 25 % (39-51); HEMOGLOBIN 8.5 g/dL (13.5-17.5); LYMPHOCYTES # (AUTO) 1.1 /CMM (0.8-4.8); LYMPHOCYTES % (AUTO) 12.5 % (20.0-44.0); MEAN CORPUSCULAR HGB CONC 34 g/dl (31.0-36.0); MEAN CORPUSCULAR VOLUME 92 fL (80-96); MONOCYTES # (AUTO) 1.1 /CMM (0.1-1.30); MONOCYTES % (AUTO) 12.1 % (2.0-12.0); NEUTROPHILS # (AUTO) 6.5 /CMM (1.8-8.9); NEUTROPHILS % (AUTO) 73.5 % (43.0-81.0); PLATELET COUNT (AUTO) 277 /CMM (150-450); RED BLOOD CELL COUNT(AUTO) 2.76 MIL/uL (4.5-6.0); WHITE BLOOD COUNT (AUTO) 8.9 K/uL (4.3-11.0)
[2019-04-08] MEDS: PANTOPRAZOLE 40 MG TABLET.DR PO SCH (08:35)
[2019-04-08] MEDS: PROSOURCE / PROSTAT (PYXIS) 30 ML UDC GT SCH ×2 (08:36→16:36)
[2019-04-08] MEDS: DAKINS QUARTER STRENGTH (0.125%) 480 ML BOTTLE TOP SCH (08:37)
[2019-04-08 08:38] LABS: CALCIUM, SERUM 8.9 mg/dL (8.5-10.1); CREATININE 0.7 mg/dL (0.6-1.3); PHOSPHORUS 2.9 mg/dL (2.5-4.9); POTASSIUM 3.7 mmol/L (3.5-5.1)
[2019-04-08] MEDS ORDERED: VANCOMYCIN 0.75 GM in IV D5W 250 ML IV SCH (09:00)
[2019-04-08] MEDS ORDERED: SILVER NITRATE APPLICATOR 1 EA BOX TP STA (10:28)
[2019-04-08] MEDS: INSULIN REGULAR, HUMAN 100 UNIT/ML 3 ML VIAL SQ PRN ×2 (12:40→17:46)
[2019-04-08] MEDS: GLUCERNA 1.2 1,000 ML BOTTLE NG PRN (14:32)
[2019-04-08 16:00] VITALS: BP 128/68
--- NOTE | 2019-04-08 18:41 | NUR ---
CLOSING PATIENT IN BED AROUSABLE WHEN NAME CALLED. ON OXYGEN 2L/MIN VIA NASAL CANNULA. RESPIRATIONS ARE EVEN AND UNLABORED. NO SIGNS OF SOB. DENIES PAIN. IN NO APPARENT DISTRESS THROUGHOUT SHIFT. IV ACCESS IN JAYA MIDLINE PATENT AND SALINE LOCKED. G-TUBE IS MAINTAINED, NO RESIDUAL, POSITIVE PLACEMENT, RUNNING GLUCERNA 1.2 @40ML/HR. CRUZ CATHETER PRESENT AND MAINTAINED, DRAINING TO GRAVITY, URINE IS ORANGE. URINE OUTPUT 500 ML. BED IS LOW AND LOCKED, SIDE RAILS UP X2, HOB ELEVATED 40 DEGREES. ALL NURSING NEEDS MET, TURNED AND REPOSITIONED Q2HR. CALL LIGHT WITHIN REACH. WILL ENDORSE TO NEXT SHIFT FOR CONTINUITY OF CARE.
--- NOTE | 2019-04-08 19:00 | NUR ---
MS RN OPENING NOTES: RECEIVED PATIENT IN BED,AWAKE, ALERT AND ORIENTED X1. NOT IN PAIN. HOB AT 40DEGREES. ON O2 AT 2L/MIN. NO SOB NOTED. G-TUBE INTACT, RESIDUAL CHECKED=60ML. FEEDING HELD FOR NOW.WILL RECHECK AGAIN LATER. WITH CRUZ CATH INTACT DRAINING TO A YELLOW URINE OUTPUT. EXTREMETIES CONTRACTED. DRESSINGS ON THE SACRAL AND RIGHT HIP AND FOOT ARE DRY AND INTACT. ON AIR MATTRESS. CALL LIGHT WITHIN REACH. BED IN LOWEST AMD LOCKED POSITION. BED ALARM ON. G-TUBE FLUSHED WITH 100ML WATER. AIRBORNE ISOLATION OBSERVED.
[2019-04-08 20:00] VITALS: BP 152/76
--- NOTE | 2019-04-08 23:33 | NUR ---
G-TUBE RESIDUAL CHECKED= NONE, G-TUBE FEEDING RESUMED AT 40ML/HOUR. KEPT HOB ELEVATED AT 45 DEGREES AT ALL TIMES. NO COMPLAIN OF PAIN. NO SOB NOTED. PATIENT RESPONDS WHEN CALLED HIS NAME.
--- NOTE | 2019-04-08 23:36 | NUR ---
BED IN LOWEST AND LOCKED POSITION AND BED ALARM ON. CALL LIGHT WITHIN REACH.
[2019-04-09] MEDS: IV D5W 1,000 ML IV PRN ×2 (00:38→20:57)
[2019-04-09] MEDS: MEROPENEM 1 G in IV NS 0.9% 100 ML IV SCH ×2 (00:39→13:07)
[2019-04-09] MEDS: ENOXAPARIN SODIUM 40 MG/0.4 ML DISP.SYRIN SQ SCH (00:50)
--- NOTE | 2019-04-09 00:57 | NUR ---
BLOOD SUGAR FINGERSTICK IS 122, NO INSULIN GIVEN. [id number] IV TUBING AND MERREM IV TUBING CHANGED. PATIENT IS COMFORTABLE. NO SOB NOTED.
[2019-04-09] MEDS: IPRATROPIUM NEB FS 0.5 MG/2.5 ML AMPUL.NEB NEB SCH ×6 (03:55→22:39)
[2019-04-09] MEDS: ACETYLCYSTEINE 10% SOLN 400 MG/4 ML VIAL NEB SCH ×6 (03:55→22:39)
[2019-04-09] MEDS: ALBUTEROL FS 2.5 MG/3 ML VIAL.NEB NEB SCH ×6 (03:55→22:39)
[2019-04-09 04:15] VITALS: BP 152/76
--- NOTE | 2019-04-09 04:48 | NUR ---
INFORMED THE RT REGARDING THE AFB FUNGAL AND CYTOLOGY COCCI SEROLOGIES #2, PATIENT NEEDS TO BE INDUCED AND SPECIMEN WILL BE SENT TO THE LAB.
[2019-04-09] MEDS: INSULIN REGULAR, HUMAN 100 UNIT/ML 3 ML VIAL SQ PRN (06:11)
[2019-04-09] MEDS: BLOOD SUGAR DIAGNOSTIC 1 EACH STRIP IN SCH ×4 (06:40→17:15)
--- NOTE | 2019-04-09 06:44 | NUR ---
MS RN CLOSING NOTES: PATIENT IS RESTING COMFORTABLY IN BED, AWAKE, A/O X1. NO SOB NOTED. AFB IS NOT DONE YET, ACCORDING TO CIGARETTE MAKER RT, DAY SHIFT RT WILL DO IT. G-TUBE INTACT, WITH GLUCERNA FEEDING AT 40ML/HOUR. WITH O2 AT 3L/MIN. NO COMPLAIN OF PAIN. COUGHS OCCASIONALLY. AIRBORNE ISOLATION OBSERVED AT ALL TIMES. HEAD OF BED ELEVATED AT 40 DEGREES AT ALL TIMES. ON AIR MATTRESS. WITH CRUZ CATH INTACT, GOOD OUTPUT. CALL LIGHT WITHIN REACH. BED IN LOWEST AND LOCKED POSITION. BED ALARM ON. NO ACUTE EVENTS OVERNIGHT. NOT IN RESPIRATORY DISTRESS.
[2019-04-09 08:00] VITALS: BP 129/62
--- NOTE | 2019-04-09 08:00 | NUR ---
MS CONNIE AM NOTES; PATIENT IS RESTING COMFORTABLY IN BED, AWAKE, A/O X1. NO SOB NOTED. G-TUBE INTACT, WITH GLUCERNA FEEDING AT 40ML/HOUR TOLERATING WELL. WITH O2 AT 3L/MIN. NO COMPLAIN OF SOB/PAIN. COUGHS OCCASIONALLY. SUCTIONED SECRETIONS PRN OFTEN.ORAL CARE DONE.AIRBORNE ISOLATION PRECAUTIONS OBSERVED AT ALL TIMES. HEAD OF BED ELEVATED AT 40 DEGREES AT ALL TIMES. ON AIR MATTRESS. WITH CRUZ CATH INTACT DRAINING YELLOW URINE WITH GOOD OUTPUT. CALL LIGHT WITHIN REACH. BED IN LOWEST AND LOCKED POSITION. BED ALARM ON. WOUND TX DONE ORDERED. TURNED EVERY TWO HRS.WILL CONTINUE TO MONITOR.
[2019-04-09] MEDS: PANTOPRAZOLE 40 MG TABLET.DR PO SCH (08:34)
[2019-04-09] MEDS: VANCOMYCIN 1 GM in IV D5W 250 ML IV SCH (08:38)
[2019-04-09] MEDS: PROSOURCE / PROSTAT (PYXIS) 30 ML UDC GT SCH ×2 (08:45→17:03)
[2019-04-09] MEDS: DAKINS QUARTER STRENGTH (0.125%) 480 ML BOTTLE TOP SCH (09:01)
[2019-04-09 13:42] LABS: BASOPHILS # (AUTO) 0.1 /CMM (0.0-0.2); BASOPHILS % (AUTO) 0.6 % (0.0-2.0); EOSINOPHILS % (AUTO) 1.4 % (0.0-6.0); HEMATOCRIT 25 % (39-51); HEMOGLOBIN 8.1 g/dL (13.5-17.5); LYMPHOCYTES # (AUTO) 1.1 /CMM (0.8-4.8); LYMPHOCYTES % (AUTO) 11.6 % (20.0-44.0); MEAN CORPUSCULAR HGB CONC 33 g/dl (31.0-36.0); MEAN CORPUSCULAR VOLUME 91 fL (80-96); MONOCYTES # (AUTO) 1.3 /CMM (0.1-1.30); MONOCYTES % (AUTO) 13.3 % (2.0-12.0); NEUTROPHILS # (AUTO) 6.9 /CMM (1.8-8.9); NEUTROPHILS % (AUTO) 73.1 % (43.0-81.0); PLATELET COUNT (AUTO) 284 /CMM (150-450); RED BLOOD CELL COUNT(AUTO) 2.71 MIL/uL (4.5-6.0); WHITE BLOOD COUNT (AUTO) 9.4 K/uL (4.3-11.0)
[2019-04-09 14:12] LABS: CALCIUM, SERUM 8.8 mg/dL (8.5-10.1); CREATININE 0.7 mg/dL (0.6-1.3); MAGNESIUM 1.9 mg/dL (1.8-2.4); PHOSPHORUS 2.9 mg/dL (2.5-4.9); POTASSIUM 3.6 mmol/L (3.5-5.1)
[2019-04-09 16:00] VITALS: BP_SYST 121; BP_SYST 154; BP_DIAS 67; BP_DIAS 77
--- NOTE | 2019-04-09 18:24 | NUR ---
MS RN CLOSING NOTES: PATIENT IS RESTING COMFORTABLY IN BED, AWAKE, A/O X1. NO SOB NOTED.G-TUBE INTACT, WITH GLUCERNA FEEDING AT 40ML/HOUR. WITH O2 AT 3L/MIN. NO COMPLAIN OF PAIN. COUGHS OCCASIONALLY. AIRBORNE ISOLATION OBSERVED AT ALL TIMES. HEAD OF BED ELEVATED AT 40 DEGREES AT ALL TIMES. ON AIR MATTRESS. WITH CRUZ CATH INTACT, GOOD OUTPUT. CALL LIGHT WITHIN REACH. BED IN LOWEST AND LOCKED POSITION. BED ALARM ON. NOT IN RESPIRATORY DISTRESS. WILL CONTINUE TO MONITOR.
--- NOTE | 2019-04-09 19:53 | NUR ---
RN OPENING NOTES RECEIVED REPORT FROM AM RN. PATIENT A/A/O X1 TO NAME W/ UNCLEAR SPEECH & SOME CONFUSION. BREATHING EVEN & UNLABORED, TOLERATING O2 @ 2LPM VIA NC. NO S/S OF RESPIRATORY DISTRESS. RADIAL PULSES PRESENT. RIGHT UPPER ARM MIDLINE & RIGHT FOREARM IV #22 INTACT & PATENT W/ DRESSING CDI & IVF D5W INFUSING WELL @ 80 ML/HR. G-TUBE PATENT & FLUSHING WELL W/ GTF RUNNING @ 40 ML/HR. NO RESIDUAL NOTED @ THIS TIME. CRUZ CATH DRAINING YELLOW URINE. NO S/S OF PAIN OR DISCOMFORT @ THIS TIME. SAFETY MEASURES IN PLACE W/ SIDE RAILS UP & BED ALARM ON. HOB ELEVATED FOR ASPIRATION PRECAUTIONS & TURNED & REPOSITIONED FOR COMFORT. WILL CONTINUE TO MONITOR.
[2019-04-09 20:00] VITALS: BP 132/59
[2019-04-09] MEDS ORDERED: DOSING PER PHARMACY-AMIKACI IV XX PRN (23:00)
[2019-04-09] MEDS ORDERED: AMIKACIN IV SCH (23:30)
[2019-04-09] MEDS ORDERED: NS 0.9% IV SCH (23:30)
[2019-04-09] MEDS ORDERED: AMIKACIN 250 MG/ML VIAL ONE (23:57)
[2019-04-10] MEDS ORDERED: AMIKACIN 250 MG/ML VIAL ONE (00:01)
[2019-04-10] MEDS: ENOXAPARIN SODIUM 40 MG/0.4 ML DISP.SYRIN SQ SCH ×2 (00:22→23:39)
[2019-04-10] MEDS: GLUCERNA 1.2 1,000 ML BOTTLE NG PRN ×2 (00:44→20:38)
[2019-04-10] MEDS: INSULIN REGULAR, HUMAN 100 UNIT/ML 3 ML VIAL SQ PRN ×3 (00:55→12:42)
[2019-04-10] MEDS: BLOOD SUGAR DIAGNOSTIC 1 EACH STRIP IN SCH ×5 (00:55→23:46)
[2019-04-10] MEDS: MEROPENEM 1 G in IV NS 0.9% 100 ML IV SCH ×2 (01:54→13:14)
--- NOTE | 2019-04-10 02:37 | NUR ---
RN MS NOTES RECEIVED PATIENT IN BED AWAKE ALERT AND ORIENTED X1, VERBALLY RESPONSIVE, RESPIRATIONS EVEN AND UNLABORED WITH EQUAL RISE AND FALL OF CHEST, ON 2 L VIA NC, NO SOB ,NO RESPIRATORY DISTRESS PRESENT, GTUBE INTACT AND PATENT, NO RESIDUALS PRESENT FEEDING RUNNING ORDERED, IV SITE TO LEFT HAND INTACT, NO REDNESS, SL . MIDLINE TO RIGHT UPPER ARM INTACT AND PATENT, IVF RUNNING ORDERED, DRESSING TO SITE IS C/D/I. NO REDNESS,NO INFILTRATION, CRUZ CATHETER IN PLACE AND DRAINING WELL PROPERLY ALIGNED, ORIENTED TO STAFF AND CALL LIGHT AND KEPT WITHIN REACH, ON ISOLATION PRECAUTIONS AIRBORNE, AND RENDERED, ALL NEEDS ATTENDED AT THIS TIME, WILL CONTINUE PLAN OF CARE AND ATTEND TO NEEDS.
--- NOTE | 2019-04-10 02:37 | NUR ---
RN NOTES REPORT GIVEN TO JOSE ROSALES FOR MIT[facility].
[2019-04-10 04:00] VITALS: BP 147/83
[2019-04-10] MEDS: ACETYLCYSTEINE 10% SOLN 400 MG/4 ML VIAL NEB SCH ×6 (04:15→23:22)
[2019-04-10] MEDS: ALBUTEROL FS 2.5 MG/3 ML VIAL.NEB NEB SCH ×6 (04:15→23:22)
[2019-04-10] MEDS: IPRATROPIUM NEB FS 0.5 MG/2.5 ML AMPUL.NEB NEB SCH ×6 (04:15→23:22)
--- NOTE | 2019-04-10 06:19 | NUR ---
CONNIE MS CLOSING NOTES RECEIVED PATIENT IN BED AWAKE ALERT AND ORIENTED X1, VERBALLY RESPONSIVE, RESPIRATIONS EVEN AND UNLABORED WITH EQUAL RISE AND FALL OF CHEST, ON 2 L VIA NC, NO SOB ,NO RESPIRATORY DISTRESS PRESENT, GTUBE INTACT AND PATENT, NO RESIDUALS PRESENT FEEDING RUNNING ORDERED, IV SITE TO LEFT HAND INTACT, NO REDNESS, SL . MIDLINE TO RIGHT UPPER ARM INTACT AND PATENT, IVF RUNNING ORDERED, DRESSING TO SITE IS C/D/I. NO REDNESS,NO INFILTRATION, CRUZ CATHETER IN PLACE AND DRAINING WELL URINE YELLOW , PROVIDED WOUND CARE ORDERED, REPOSITIONED AND KEPT CLEAN, HEELS WOUND SITE OFFLOADED, FC PROPERLY ALIGNED, CALL LIGHT AND KEPT WITHIN REACH, ON ISOLATION PRECAUTIONS AIRBORNE, AND RENDERED, BED ALARM IN PLACE, ALL NEEDS ATTENDED AT THIS TIME, WILL CONTINUE TO MONITOR ATTEND TO NEEDS AND ENDORSE TO NEXT SHIFT. Addendum: 04/10/19 at 0630 by JOSE DORMAN RN CLARIFICATION -CLOSING NOTES PATIENT IN BED AWAKE ALERT AND ORIENTED X1, VERBALLY RESPONSIVE, RESPIRATIONS EVEN AND UNLABORED WITH EQUAL RISE AND FALL OF CHEST, ON 2 L VIA NC, NO SOB ,NO RESPIRATORY DISTRESS PRESENT, GTUBE INTACT AND PATENT, NO RESIDUALS PRESENT FEEDING RUNNING ORDERED, IV SITE TO LEFT HAND INTACT, NO REDNESS, SL . MIDLINE TO RIGHT UPPER ARM INTACT AND PATENT, IVF RUNNING ORDERED, DRESSING TO SITE IS C/D/I. NO REDNESS,NO INFILTRATION, CRUZ CATHETER IN PLACE AND DRAINING WELL URINE YELLOW , PROVIDED WOUND CARE ORDERED, REPOSITIONED AND KEPT CLEAN, HEELS WOUND SITE OFFLOADED, FC PROPERLY ALIGNED, CALL LIGHT AND KEPT WITHIN REACH, ON ISOLATION PRECAUTIONS AIRBORNE, AND RENDERED, BED ALARM IN PLACE, ALL NEEDS ATTENDED AT THIS TIME, WILL CONTINUE TO MONITOR ATTEND TO NEEDS AND ENDORSE TO NEXT SHIFT.
[2019-04-10] MEDS ORDERED: FEE PK DOSING 1 MIN EA MC ONE (07:14)
--- NOTE | 2019-04-10 07:30 | NUR ---
RN OPENING NOTES RECEIVED PT RESTING IN BED COMFORTABLY, DENIES ANY PAIN OR DISCOMFORT AT THIS TIME. HE IS AOX1, VERBALLY RESPONSIVE, AND BEDBOUND. HE IS ON 2 L OF O2, TOLERATING WELL, BREATHING IS UNLABORED. HE IS ON AIRBORNE PRECAUTIONS FOR TB. CRUZ CATHETER IS INTACT AND DRAINING URINE, YELLOW AND CLEAR. GLUCERNA IS RUNNING AT 40ML/HR, TOLERATING WELL, NO RESIDUAL. HE HAS A JAYA MIDLINE AND L HAND RUNNING D5W. SAFETY MEASURES HAVE BEEN IMPLEMENTED, CALL LIGHT IS WITHIN REACH, BED IS IN LOWEST AND LOCKED POSITION, SIDE RAILS UP X2, WILL CONTINUE TO MONITOR FOR ANY CHANGES
[2019-04-10 07:43] LABS: BASOPHILS % (AUTO) 0.4 % (0.0-2.0); EOSINOPHILS % (AUTO) 1.7 % (0.0-6.0); HEMATOCRIT 25 % (39-51); HEMOGLOBIN 8.5 g/dL (13.5-17.5); LYMPHOCYTES # (AUTO) 1.2 /CMM (0.8-4.8); LYMPHOCYTES % (AUTO) 12.5 % (20.0-44.0); MEAN CORPUSCULAR HGB CONC 34 g/dl (31.0-36.0); MEAN CORPUSCULAR VOLUME 90 fL (80-96); MONOCYTES # (AUTO) 1.2 /CMM (0.1-1.30); MONOCYTES % (AUTO) 12.4 % (2.0-12.0); NEUTROPHILS # (AUTO) 6.8 /CMM (1.8-8.9); PLATELET COUNT (AUTO) 310 /CMM (150-450); RED BLOOD CELL COUNT(AUTO) 2.78 MIL/uL (4.5-6.0); WHITE BLOOD COUNT (AUTO) 9.3 K/uL (4.3-11.0)
[2019-04-10] MEDS: PANTOPRAZOLE 40 MG TABLET.DR PO SCH (07:44)
[2019-04-10 08:00] VITALS: BP_SYST 144; BP_DIAS 35; BP_DIAS 45
[2019-04-10 08:35] LABS: CALCIUM, SERUM 8.6 mg/dL (8.5-10.1); CREATININE 0.7 mg/dL (0.6-1.3); MAGNESIUM 1.7 mg/dL (1.8-2.4); PHOSPHORUS 2.5 mg/dL (2.5-4.9); POTASSIUM 3.4 mmol/L (3.5-5.1)
[2019-04-10] MEDS: DAKINS QUARTER STRENGTH (0.125%) 480 ML BOTTLE TOP SCH (09:00)
--- NOTE | 2019-04-10 09:30 | NUR ---
VANCOMYCIN HAS BEEN DELAYED. WAITING FOR VANCO TROUGH TO RESULT BEFORE I ADMIN , WILL CONTINUE TO MONITOR.
[2019-04-10] MEDS ORDERED: POTASSIUM CHLORIDE 20 MEQ POWDER PACKET GT SCH (10:00)
[2019-04-10] MEDS: PROSOURCE / PROSTAT (PYXIS) 30 ML UDC GT SCH ×2 (10:46→17:37)
[2019-04-10] MEDS: Magnesium 1GM/D5W 100ML PREMIX 100 ML IV SCH ×2 (10:48→12:21)
[2019-04-10] MEDS: VANCOMYCIN 1 GM in IV D5W 250 ML IV SCH (11:28)
[2019-04-10 16:00] VITALS: BP 166/79
--- NOTE | 2019-04-10 19:16 | NUR ---
RN CLOSING NOTES PATIENT IS RESTING IN BED COMFORTABLY, DENIES ANY PAIN OR DISCOMFORT AT THIS TIME. HE IS ON NC AT 3L TOLERATING WELL. DRESSINGS HAVE BEEN CHANGED. PT IS TOLERATING TUBE FEEDING WELL. VITAL SIGNS ARE STABLE, NEEDS HAVE BEEN MET, NO ACUTE CHANGES OCCURRED THROUGHOUT THE SHIFT. SAFETY MEASURES HAVE BEEN IMPLEMENTED, CALL LIGHT IS WITHIN REACH, BED IS IN LOWEST AND LOCKED POSITION, SIDE RAILS UP X2, PT HAS BEEN ENDORSED TO NIGHTSHIFT RN FOR CONTINUITY OF CARE.
[2019-04-10 20:00] VITALS: BP 166/79
--- NOTE | 2019-04-10 20:00 | NUR ---
MS RN NOTE PT IN BED AWAKE. A/O X 1 NAME ONLY. NO SOB NO DISTRESS OR DISCOMFORT NOTED. NO S/S OF PAIN NOTED. ON O2 2L VIA N/C O2 SAT 95%. KEPT HOB ELEVATED TO 40 DEGREES ALL THE TIME. ON GTF GLUCERNA 1.2 DENISSE AT 65 ML/HR, 0 ML RESIDUAL NOTED. IVF D5W INFUSING AT 80 ML/HR, NO S/S OF INFILTRATION NOTED. NO S/S OF HYPO OR HYPERGLYCEMIA NOTED. REMAIN IN ISOLATION FOR TB, ISOLATION PRECAUTIONS TAKEN. F/C INTACT AND PATENT DRAINING YELLOWISH COLOR URINE. REPOSITION HIM FOR SKIN MANAGEMENT. SIDE RAILS UP X 3 AND CALL LIGHT WITHIN REACH. CONTINUE TO MONITOR HIM.
[2019-04-10] MEDS: IV D5W 1,000 ML IV PRN (20:39)
[2019-04-11] MEDS ORDERED: ACET1OOV6 NEB (00:09)
[2019-04-11] MEDS ORDERED: MERO1VIA3 IV (00:15)
[2019-04-11] MEDS ORDERED: VANC1PLA9 IV (00:15)
[2019-04-11] MEDS ORDERED: AMIK250V14 IJ (00:15)
[2019-04-11] MEDS: MEROPENEM 1 G in IV NS 0.9% 100 ML IV SCH ×2 (01:02→12:10)
[2019-04-11] MEDS: ACETYLCYSTEINE 10% SOLN 400 MG/4 ML VIAL NEB SCH ×7 (03:31→23:09)
[2019-04-11] MEDS: ALBUTEROL FS 2.5 MG/3 ML VIAL.NEB NEB SCH ×7 (03:31→23:09)
[2019-04-11] MEDS: IPRATROPIUM NEB FS 0.5 MG/2.5 ML AMPUL.NEB NEB SCH ×7 (03:31→23:09)
[2019-04-11 04:00] VITALS: BP 120/53
[2019-04-11] MEDS: BLOOD SUGAR DIAGNOSTIC 1 EACH STRIP IN SCH ×3 (05:41→17:39)
--- NOTE | 2019-04-11 06:42 | NUR ---
MS RN NOTE PT IN BED ASLEEP, AROUSABLE, NO DISTRESS OR DISCOMFORT NOTED. NO S/S OF PAIN NOTED. GTF INFUSING WELL, 0 ML RESIDUAL NOTED. IVF INFUSING WELL, NO S/S OF INFILTRATION NOTED. KEPT HIM DRY AND CLEAN. ALL NEEDS ATTENDED. REPOSITION HIM Q2H SIDE RAILS UP X 3 AND CALL LIGHT WITHIN REACH. WILL ENDORSE TO DAYS SHIFT NURSE FOR CONTINUE TO CARE.
[2019-04-11 06:51] LABS: BASOPHILS # (AUTO) 0.1 /CMM (0.0-0.2); BASOPHILS % (AUTO) 0.7 % (0.0-2.0); EOSINOPHILS % (AUTO) 1.5 % (0.0-6.0); HEMATOCRIT 24 % (39-51); HEMOGLOBIN 8.1 g/dL (13.5-17.5); LYMPHOCYTES # (AUTO) 1.2 /CMM (0.8-4.8); LYMPHOCYTES % (AUTO) 14.5 % (20.0-44.0); MEAN CORPUSCULAR HGB CONC 34 g/dl (31.0-36.0); MEAN CORPUSCULAR VOLUME 89 fL (80-96); MONOCYTES % (AUTO) 11.5 % (2.0-12.0); NEUTROPHILS # (AUTO) 6.1 /CMM (1.8-8.9); NEUTROPHILS % (AUTO) 71.8 % (43.0-81.0); PLATELET COUNT (AUTO) 330 /CMM (150-450); RED BLOOD CELL COUNT(AUTO) 2.69 MIL/uL (4.5-6.0); WHITE BLOOD COUNT (AUTO) 8.4 K/uL (4.3-11.0)
--- NOTE | 2019-04-11 07:12 | NUR ---
MS RN OPENING NOTE RECEIVED REPORT FROM [facility] SHIFT NURSE. PT ASLEEP IN BED, ON 02 STAR NC 2L/MIN, SATURATING WELL, NO SIGNS OF RESPIRATORY DISTRESS NOTED. CRUZ CATHETER DRAINING CLEAR YELLOW URINE. IV SITE ON LEFT HAND PATENT, INTACT, INFUSING D5W AT 80ML/HR, NO SIGNS OF INFILTRATION NOTED. RIGHT UPPER MIDLINE PATENT. BED IN LOW POSITION, LOCKED, CALL LIGHT WITHIN REACH. AIRBORNE ISOLATION PRECAUTIONS IN PLACE. Addendum: 04/11/19 at 0810 by CASEY BOYD RN CORRECTION, IV SITE ON RIGHT HAND NOT LEFT HAND. IV SITE ON RIGHT HAND PATENT, INTACT, INFUSING D5W AT 80ML/HR.
[2019-04-11 07:14] LABS: CALCIUM, SERUM 8.7 mg/dL (8.5-10.1); CREATININE 0.8 mg/dL (0.6-1.3); MAGNESIUM 1.9 mg/dL (1.8-2.4); PHOSPHORUS 2.8 mg/dL (2.5-4.9); POTASSIUM 3.5 mmol/L (3.5-5.1)
[2019-04-11] MEDS: PANTOPRAZOLE 40 MG TABLET.DR PO SCH (07:47)
[2019-04-11 08:00] VITALS: BP 142/80
[2019-04-11] MEDS: PROSOURCE / PROSTAT (PYXIS) 30 ML UDC GT SCH ×2 (08:00→17:14)
[2019-04-11] MEDS: VANCOMYCIN 1 GM in IV D5W 250 ML IV SCH (08:05)
[2019-04-11] MEDS: DAKINS QUARTER STRENGTH (0.125%) 480 ML BOTTLE TOP SCH (08:09)
[2019-04-11 10:26] LABS: IRON, SERUM 66 ug/dl (50-175); TOTAL IRON BINDING CAPACITY 202 ug/dl (250-450)
[2019-04-11] MEDS ORDERED: LIDOCAINE 1%-EPI 1:100,000 20 ML VIAL TP ONE (10:30)
[2019-04-11 11:00] LABS: FREE PSA 4.35 ng/mL (0.00-45); PROSTATE SPECIFIC ANTIGEN SCR 65.08 ng/mL (0.00-4.00); THYROID STIMULATING HORMONE 0.49 uIU/mL (0.358-3.74)
--- NOTE | 2019-04-11 11:59 | NUR ---
SPUTUM COLLECTED FOR LAB VIA NASAL SUCTION, AND HOSTESS CASHIER SOONI NOTIFIED TO CALL LAB FOR RAIL TRACTOR OPERATOR.
[2019-04-11] MEDS: AMIKACIN 1,000 MG in IV D5W 100 ML IV SCH (12:17)
[2019-04-11 14:00] VITALS: BP 138/76
[2019-04-11] MEDS: GLUCERNA 1.2 1,000 ML BOTTLE NG PRN (15:43)
[2019-04-11] MEDS: INSULIN REGULAR, HUMAN 100 UNIT/ML 3 ML VIAL SQ PRN (17:42)
--- NOTE | 2019-04-11 19:17 | NUR ---
MS RN CLOSING NOTE PT ASLEEP IN BED, ON NC 2L/MIN, SATURATING WELL, NO SIGNS OF RESPIRATORY DISTRESS NOTED. TURNED AND REPOSITIONED PT Q2 HOURS THROUGHOUT SHIFT. HOB ELEVATED TO 40 DEGREES THROUGHOUT SHIFT. BED IN LOW POSITION, LOCKED, CALL LIGHT WITHIN REACH. CRUZ CATHETER DRAINING CLEAR YELLOW URINE. ALL DUE MEDS GIVEN, PROVIDED SAFETY AND COMFORT TO PT THROUGHOUT SHIFT. ENDORSED TO [facility] SHIFT NURSE.
[2019-04-11 20:00] VITALS: BP_SYST 156; BP_SYST 157; BP_DIAS 73
--- NOTE | 2019-04-11 20:00 | NUR ---
RN NOTES RECEIVED PATIENT REPORT FROM AM RN. PATIENT IS IN BED A/A/OX1, CONFUSED. ON 2L O2 VIA NC WITH SPO2 OF 100%. CRUZ CATHETER IN PLACE. GT IS IN PLACE WITH GLUCERNA @65ML/HR. RIGHT HAND G22 AND RIGHT UPPER ARM MIDLINE IV LINES ARE IN PLACE PATIENT AND INTACT SL. HOB ELEVATED AT 40 DEG AT ALL TIMES. ALL SAFETY MEASURES ARE IN PLACE, BED IN LOW LOCKED POSITION, CALL LIGHT IN REACH. WILL CONTINUE TO MONITOR PATIENT CLOSELY.
[2019-04-12] MEDS: ENOXAPARIN SODIUM 40 MG/0.4 ML DISP.SYRIN SQ SCH ×2 (00:47→23:38)
[2019-04-12] MEDS: MEROPENEM 1 G in IV NS 0.9% 100 ML IV SCH ×2 (00:48→12:42)
[2019-04-12] MEDS: BLOOD SUGAR DIAGNOSTIC 1 EACH STRIP IN SCH ×5 (00:48→23:50)
[2019-04-12] MEDS: IPRATROPIUM NEB FS 0.5 MG/2.5 ML AMPUL.NEB NEB SCH ×6 (03:28→23:28)
[2019-04-12] MEDS: ACETYLCYSTEINE 10% SOLN 400 MG/4 ML VIAL NEB SCH ×7 (03:28→23:28)
[2019-04-12] MEDS: ALBUTEROL FS 2.5 MG/3 ML VIAL.NEB NEB SCH ×6 (03:28→23:28)
[2019-04-12 04:00] VITALS: BP 140/72
--- NOTE | 2019-04-12 07:30 | NUR ---
MS/RN OPENING NOTES RECEIVED PATIENT IN BED SLEEPING COMFORTABLY. EASILY AROUSABLE. ABLE TO RESPOND TO VERBAL AND TACTILE STIMULI. PATIENT IS ALERT AND ORIENTED X1 WITH CONFUSION. NO PAIN OR ACUTE DISTRESS AT THIS TIME. RESPIRATION EVEN AND UNLABORED. SKIN IS DRY WARM TO TOUCH. PATIENT ON 2L O2 VIA NC WITH SPO2 OF 98%. CRUZ CATHETER IN PLACE AND DRAINING CLEAR YELLOW URINE. GT IS IN PLACE WITH NO RESIDUAL. ISOLATION MAINTAINED. HOB ELEVATED AT ALL TIMES TOLERATING GT FEEDING WELL. RIGHT HAND G22 AND RIGHT UPPER ARM MIDLINE IV LINES ARE IN PLACE PATIENT AND INTACT. ALL NEEDS ANTICIPATED. CALL LIGHT WITHIN REACHED. SAFETY MAINTAINED. BED LOCKED AND IN LOWEST POSITION. WILL CONTINUE TO MONITOR CLOSELY.
[2019-04-12] MEDS: PANTOPRAZOLE 40 MG TABLET.DR PO SCH (07:53)
[2019-04-12 08:00] VITALS: BP 140/74
[2019-04-12 08:10] LABS: CALCIUM, SERUM 8.7 mg/dL (8.5-10.1); CREATININE 0.8 mg/dL (0.6-1.3); POTASSIUM 3.7 mmol/L (3.5-5.1)
[2019-04-12] MEDS ORDERED: COLLAGENASE 30 GM TUBE TP SCH (09:00)
[2019-04-12] MEDS: PROSOURCE / PROSTAT (PYXIS) 30 ML UDC GT SCH ×2 (09:02→16:52)
[2019-04-12] MEDS: VANCOMYCIN 1 GM in IV D5W 250 ML IV SCH (09:02)
[2019-04-12] MEDS: DAKINS QUARTER STRENGTH (0.125%) 480 ML BOTTLE TOP SCH (09:35)
[2019-04-12] MEDS: THERAHONEY GEL 1.5 OZ TUBE TP SCH (10:11)
[2019-04-12] MEDS: IV D5W 1,000 ML IV PRN (12:41)
[2019-04-12 16:00] VITALS: BP 145/80
[2019-04-12] MEDS: GLUCERNA 1.2 1,000 ML BOTTLE NG PRN (17:11)
--- NOTE | 2019-04-12 18:55 | NUR ---
MS/RN CLOSING NOTES PATIENT CONTINUES TO REMAIN IN STABLE CONDITION THROUGHOUT THE SHIFT. PROVIDED COMFORT AND SAFETY. ISOLATION MAINTAINED. HOB ELEVATED AT ALL TIMES TOLERATING GT FEEDING WELL. RIGHT HAND G22 AND RIGHT UPPER ARM MIDLINE IV LINES ARE IN PLACE PATIENT AND INTACT. ALL NEEDS ANTICIPATED. KEPT CLEAN AND DRY. CALL LIGHT WITHIN REACHED. SAFETY MAINTAINED. BED LOCKED AND IN LOWEST POSITION. WILL CONTINUE TO MONITOR CLOSELY. ENDORSED TO PM NURSE FOR MITESH.
[2019-04-12 20:00] VITALS: BP 134/69
--- NOTE | 2019-04-12 20:00 | NUR ---
MS RN NOTE PT IN BED ASLEEP, AROUSABLE. A/O X 1 NAME ONLY. NO SOB NO DISTRESS OR DISCOMFORT NOTED. NO S/S OF PAIN NOTED. ON O2 2L VIA N/C O2 SAT 94%. KEPT HOB ELEVATED TO 40 DEGREES ALL THE TIME. ON GTF GLUCERNA 1.2 DENISSE AT 65 ML/HR, 0 ML RESIDUAL NOTED. IVF D5W INFUSING AT 80 ML/HR, NO S/S OF INFILTRATION NOTED. NO S/S OF HYPO OR HYPERGLYCEMIA NOTED. REMAIN IN ISOLATION FOR TB, ISOLATION PRECAUTIONS TAKEN. F/C INTACT AND PATENT DRAINING YELLOWISH COLOR URINE. REPOSITION HIM FOR SKIN MANAGEMENT. SIDE RAILS UP X 3 AND CALL LIGHT WITHIN REACH. CONTINUE TO MONITOR HIM.
[2019-04-12] MEDS: AMIKACIN 1,000 MG in IV D5W 100 ML IV SCH (23:37)
--- NOTE | 2019-04-13 | NUR ---
MS RN NOTE PATIENT RECEIVED FROM MADONNA ROSALES. PATIENT IN MED A/O X 1. NO S/S OF RESP DISTRESS. PATIENT TOLERATING 2L NC. BREATHING EVEN AND UNLABORED. PATIENT CRUZ CATH DRAINING TO GRAVITY. PATIENT REPOSITIONED FOR COMFORT. SAFETY PRECAUTIONS IN PLACE. RN WILL CONTINUE TO MONITOR FOR CHANGES.
--- NOTE | 2019-04-13 00:11 | NUR ---
MS RN NOTE REPORT GIVEN NURSE ODALYS FOR CONTINUE TO CARE.
[2019-04-13] MEDS: MEROPENEM 1 G in IV NS 0.9% 100 ML IV SCH ×2 (00:39→13:34)
[2019-04-13] MEDS: IPRATROPIUM NEB FS 0.5 MG/2.5 ML AMPUL.NEB NEB SCH ×6 (03:33→23:42)
[2019-04-13] MEDS: ACETYLCYSTEINE 10% SOLN 400 MG/4 ML VIAL NEB SCH ×6 (03:33→23:42)
[2019-04-13] MEDS: ALBUTEROL FS 2.5 MG/3 ML VIAL.NEB NEB SCH ×6 (03:33→23:42)
[2019-04-13] MEDS: BLOOD SUGAR DIAGNOSTIC 1 EACH STRIP IN SCH ×3 (05:38→18:00)
[2019-04-13 07:11] LABS: BASOPHILS # (AUTO) 0.1 /CMM (0.0-0.2); BASOPHILS % (AUTO) 0.6 % (0.0-2.0); EOSINOPHILS % (AUTO) 2.2 % (0.0-6.0); HEMATOCRIT 25 % (39-51); HEMOGLOBIN 8.3 g/dL (13.5-17.5); LYMPHOCYTES # (AUTO) 1.4 /CMM (0.8-4.8); LYMPHOCYTES % (AUTO) 13.4 % (20.0-44.0); MEAN CORPUSCULAR HGB CONC 33 g/dl (31.0-36.0); MEAN CORPUSCULAR VOLUME 89 fL (80-96); MONOCYTES % (AUTO) 9.5 % (2.0-12.0); NEUTROPHILS # (AUTO) 7.5 /CMM (1.8-8.9); NEUTROPHILS % (AUTO) 74.3 % (43.0-81.0); PLATELET COUNT (AUTO) 410 /CMM (150-450); WHITE BLOOD COUNT (AUTO) 10.1 K/uL (4.3-11.0)
[2019-04-13 07:42] LABS: ALBUMIN 1.6 g/dL (3.4-5.0); BILIRUBIN,DIRECT 0.1 mg/dL (0.0-0.2); BILIRUBIN,TOTAL 0.3 mg/dL (0.2-1.0); CREATININE 0.7 mg/dL (0.6-1.3); MAGNESIUM 1.7 mg/dL (1.8-2.4); PHOSPHORUS 3.1 mg/dL (2.5-4.9); POTASSIUM 3.4 mmol/L (3.5-5.1); TOTAL PROTEIN, SERUM 6.3 g/dL (6.4-8.2)
[2019-04-13 08:00] VITALS: BP 131/48
[2019-04-13] MEDS: PANTOPRAZOLE 40 MG TABLET.DR PO SCH (08:14)
[2019-04-13] MEDS: PROSOURCE / PROSTAT (PYXIS) 30 ML UDC GT SCH ×2 (08:14→19:11)
[2019-04-13] MEDS: VANCOMYCIN 1 GM in IV D5W 250 ML IV SCH (08:15)
[2019-04-13] MEDS: DAKINS QUARTER STRENGTH (0.125%) 480 ML BOTTLE TOP SCH (08:15)
[2019-04-13] MEDS: THERAHONEY GEL 1.5 OZ TUBE TP SCH (08:16)
[2019-04-13] MEDS ORDERED: POTASSIUM CHLORIDE 20 MEQ POWDER PACKET GT SCH (09:30)
[2019-04-13] MEDS: Magnesium 1GM/D5W 100ML PREMIX 100 ML IV SCH ×2 (10:42→19:28)
[2019-04-13 16:00] VITALS: BP 123/62
--- NOTE | 2019-04-13 18:19 | NUR ---
jer from infection control notified about final afb negative x3 and nera Id ordered discontinue airborne isolation and carried out.
--- NOTE | 2019-04-13 19:00 | NUR ---
X3 NEG [employer] PLACED IN CHART UNDER "PATHOLOGY" . ID [employer] AIRCREWMAN TACTICAL HELICOPTER AWARE
--- NOTE | 2019-04-13 20:00 | NUR ---
RN MS INITIAL NOTES RECEIVED PATIENT IN BED EASILY AROUSABLE. ABLE TO RESPOND TO VERBAL AND TACTILE STIMULI. PATIENT IS ALERT AND ORIENTED X1 WITH CONFUSION. NO PAIN OR ACUTE DISTRESS AT THIS TIME. RESPIRATION EVEN AND UNLABORED. SKIN IS DRY WARM TO TOUCH. PATIENT ON 2L O2 VIA NC WITH SPO2 OF 98%. CRUZ CATHETER IN PLACE AND DRAINING CLEAR YELLOW URINE. GT IS IN PLACE WITH NO RESIDUAL. ISOLATION CLEARED PER AM RN X 3 AFB RESULTS (-). HOB ELEVATED AT ALL TIMES TOLERATING GT FEEDING WELL. RIGHT HAND G22 AND RIGHT UPPER ARM MIDLINE IV LINES ARE IN PLACE PATIENT AND INTACT. ALL NEEDS ANTICIPATED. CALL LIGHT WITHIN REACHED. SAFETY MAINTAINED. BED LOCKED AND IN LOWEST POSITION. WILL CONTINUE TO MONITOR CLOSELY.
[2019-04-13 20:35] VITALS: BP 123/50
[2019-04-14] MEDS: ENOXAPARIN SODIUM 40 MG/0.4 ML DISP.SYRIN SQ SCH (00:47)
[2019-04-14] MEDS: BLOOD SUGAR DIAGNOSTIC 1 EACH STRIP IN SCH ×4 (00:47→18:13)
[2019-04-14] MEDS: MEROPENEM 1 G in IV NS 0.9% 100 ML IV SCH ×2 (00:57→15:40)
[2019-04-14] MEDS: IPRATROPIUM NEB FS 0.5 MG/2.5 ML AMPUL.NEB NEB SCH ×5 (04:07→19:46)
[2019-04-14] MEDS: ACETYLCYSTEINE 10% SOLN 400 MG/4 ML VIAL NEB SCH ×5 (04:07→19:46)
[2019-04-14] MEDS: ALBUTEROL FS 2.5 MG/3 ML VIAL.NEB NEB SCH ×5 (04:07→19:46)
[2019-04-14] MEDS: GLUCERNA 1.2 1,000 ML BOTTLE NG PRN (04:46)
[2019-04-14 06:24] LABS: BASOPHILS % (AUTO) 0.4 % (0.0-2.0); EOSINOPHILS % (AUTO) 1.9 % (0.0-6.0); HEMATOCRIT 23 % (39-51); HEMOGLOBIN 7.8 g/dL (13.5-17.5); LYMPHOCYTES # (AUTO) 2.2 /CMM (0.8-4.8); LYMPHOCYTES % (AUTO) 17.9 % (20.0-44.0); MEAN CORPUSCULAR HGB CONC 34 g/dl (31.0-36.0); MEAN CORPUSCULAR VOLUME 88 fL (80-96); NEUTROPHILS # (AUTO) 8.9 /CMM (1.8-8.9); NEUTROPHILS % (AUTO) 71.8 % (43.0-81.0); PLATELET COUNT (AUTO) 440 /CMM (150-450); RED BLOOD CELL COUNT(AUTO) 2.62 MIL/uL (4.5-6.0); WHITE BLOOD COUNT (AUTO) 12.4 K/uL (4.3-11.0)
[2019-04-14 06:35] LABS: CALCIUM, SERUM 8.9 mg/dL (8.5-10.1); CREATININE 0.8 mg/dL (0.6-1.3); MAGNESIUM 2.2 mg/dL (1.8-2.4)
--- NOTE | 2019-04-14 07:16 | NUR ---
MS RN OPENING RECEIVED PATIENT SLEEPING, EASILY AROUSABLE TO NAME. OPENS EYES. CAN VERBALIZED AND FOLLOW COMMAND SOMETIMES. ON 2L O2 VIA NC, NO RESPIRATORY DISTRESS, SPO2 WNL. CRUZ CATHETER DRAINING YELLOW URINE TO GRAVITY. GTF @65mL/HR. RT HAND 22G, R UA MIDLINE, C/D/I, PATENT, NO S/S INFILTRATION.
[2019-04-14 08:00] VITALS: BP 127/65
[2019-04-14 08:06] LABS: IMMUNOGLOBULIN A, SERUM 307 mg/dL (61-437); IMMUNOGLOBULIN G, SERUM 1579 mg/dL (700-1600); IMMUNOGLOBULIN M, SERUM 50 mg/dL (15-143)
[2019-04-14] MEDS: VANCOMYCIN 1 GM in IV D5W 250 ML IV SCH (08:32)
[2019-04-14] MEDS: PANTOPRAZOLE 40 MG TABLET.DR PO SCH (08:32)
[2019-04-14] MEDS: PROSOURCE / PROSTAT (PYXIS) 30 ML UDC GT SCH ×2 (08:32→18:13)
[2019-04-14] MEDS: THERAHONEY GEL 1.5 OZ TUBE TP SCH (08:33)
[2019-04-14] MEDS: DAKINS QUARTER STRENGTH (0.125%) 480 ML BOTTLE TOP SCH (08:33)
--- NOTE | 2019-04-14 12:00 | NUR ---
PATIENT SEEN BY DR. GAMBINO, AWARE OF INCREASED WBC, DC OK, ORDERS TO KEEP CRUZ ON UPON DC
[2019-04-14] MEDS: AMIKACIN 1,000 MG in IV D5W 100 ML IV SCH (12:29)
[2019-04-14 14:07] LABS: *SPE A/G RATIO 0.6 (0.7-1.7); *SPE ALBUMIN 2.1 g/dL (2.9-4.4); *SPE ALPHA-1-GLOBULIN 0.4 g/dL (0.0-0.4); *SPE ALPHA-2-GLOBULIN 0.7 g/dL (0.4-1.0); *SPE GLOBULIN, TOTAL 3.4 g/dL (2.2-3.9); *SPE M-SPIKE Not Observed g/dL (Not Observed); *SPEGAMMA GLOBULIN 1.4 g/dL (0.4-1.8)
[2019-04-14 16:00] VITALS: BP 127/69
--- NOTE | 2019-04-14 18:38 | NUR ---
MS RN CLOSING PATIENT HAS ACTIVE DC ORDER. AWAITING [place] BED PER RASTA PICK PACK WORKER. PATIENT'S DAUGHTER KODI AWARE. WOUND PICTURES TAKEN, BELONGINGS CHECKLIST SIGNED BY CAREGIVER, ALL DC PAPERWORK DONE. REPORT TO FACILITY NOT GIVEN PENDING BED. PER JESI GAMBINO DNP, LEAVE IN [place]. PATIENT DC'D ON IV ABX, MIDLINE NOT REMOVED. NO SIGNIFICANT CHANGES THROUGHOUT SHIFT. 2L O2 VIA NC. NO RESPIRATORY DISTRESS. WILL ENDORSE TO NOC RN FOR MITESH
[2019-04-14 20:00] VITALS: BP 133/70
--- NOTE | 2019-04-14 20:51 | NUR ---
MS RN OPENING RECEIVED PATIENT SLEEPING, EASILY AROUSABLE TO NAME. OPENS EYES. CAN VERBALIZED AND FOLLOW COMMAND SOMETIMES. ON 2L O2 VIA NC, NO RESPIRATORY DISTRESS, SPO2 WNL. CRUZ CATHETER DRAINING YELLOW URINE TO GRAVITY. GTF @65mL/HR. RT HAND 22G, R UA MIDLINE, C/D/I, PATENT, NO S/S INFILTRATION. CLEARED FOR DC TO [place], AWAITING FOR CM TO CONFIRM BED.
[2019-04-15] MEDS: ACETYLCYSTEINE 10% SOLN 400 MG/4 ML VIAL NEB SCH ×5 (00:02→14:45)
[2019-04-15] MEDS: IPRATROPIUM NEB FS 0.5 MG/2.5 ML AMPUL.NEB NEB SCH ×5 (00:02→14:45)
[2019-04-15] MEDS: ALBUTEROL FS 2.5 MG/3 ML VIAL.NEB NEB SCH ×5 (00:02→14:45)
[2019-04-15] MEDS: MEROPENEM 1 G in IV NS 0.9% 100 ML IV SCH ×2 (00:30→12:00)
[2019-04-15] MEDS: BLOOD SUGAR DIAGNOSTIC 1 EACH STRIP IN SCH ×4 (00:30→18:12)
[2019-04-15] MEDS: ENOXAPARIN SODIUM 40 MG/0.4 ML DISP.SYRIN SQ SCH (00:34)
[2019-04-15] MEDS: GLUCERNA 1.2 1,000 ML BOTTLE NG PRN (02:50)
--- NOTE | 2019-04-15 06:31 | NUR ---
MS RN CLOSING NOTE PATIENT SLEEPING, EASILY AROUSABLE TO NAME. OPENS EYES. CAN VERBALIZED AND FOLLOW COMMAND SOMETIMES. ON 2L O2 VIA NC, NO RESPIRATORY DISTRESS, SPO2 WNL. CRUZ CATHETER DRAINING YELLOW URINE TO GRAVITY. GTF @65mL/HR. RT HAND 22G, R UA MIDLINE, C/D/I, PATENT, NO S/S INFILTRATION. CLEARED FOR DC TO [place], AWAITING FOR CM TO CONFIRM BED.
[2019-04-15] MEDS: INSULIN REGULAR, HUMAN 100 UNIT/ML 3 ML VIAL SQ PRN (06:35)
--- NOTE | 2019-04-15 07:20 | NUR ---
MS RN OPENING N0TE RECEIVED REPORT FROM [facility] SHIFT NURSE. PT ASLEEP IN BED, ON NC 2L/MIN, SATURATING WELL, RESPIRATIONS EASY AND UNLABORED, NO SIGNS OF RESPIRATORY DISTRESS NOTED. CRUZ CATHETER DRAINING CLEAR YELLOW URINE. GLUCERNA 1.2 INFUSING AT 65ML/HR, PT TOLERATING FEEDING WELL. RIGHT HAND G22 SALINE LOCK, LINE IS PATENT, FLUSHED WITH NS. RIGHT UPPER ARM MIDLINE INTACT. BED IN LOW POSITION, LOCKED, CALL LIGHT WITHIN REACH.
[2019-04-15 08:00] VITALS: BP 131/90
[2019-04-15] MEDS: PANTOPRAZOLE 40 MG TABLET.DR PO SCH (08:09)
[2019-04-15] MEDS: DAKINS QUARTER STRENGTH (0.125%) 480 ML BOTTLE TOP SCH (08:11)
[2019-04-15] MEDS: PROSOURCE / PROSTAT (PYXIS) 30 ML UDC GT SCH ×2 (08:11→17:21)
[2019-04-15] MEDS: THERAHONEY GEL 1.5 OZ TUBE TP SCH (08:11)
[2019-04-15] MEDS: VANCOMYCIN 1 GM in IV D5W 250 ML IV SCH (08:14)
[2019-04-15 08:17] LABS: BASOPHILS # (AUTO) 0.1 /CMM (0.0-0.2); BASOPHILS % (AUTO) 0.4 % (0.0-2.0); EOSINOPHILS % (AUTO) 0.9 % (0.0-6.0); HEMATOCRIT 25 % (39-51); HEMOGLOBIN 8.1 g/dL (13.5-17.5); LYMPHOCYTES # (AUTO) 1.1 /CMM (0.8-4.8); LYMPHOCYTES % (AUTO) 7.8 % (20.0-44.0); MEAN CORPUSCULAR HGB CONC 33 g/dl (31.0-36.0); MEAN CORPUSCULAR VOLUME 89 fL (80-96); MONOCYTES % (AUTO) 7.5 % (2.0-12.0); NEUTROPHILS # (AUTO) 11.4 /CMM (1.8-8.9); NEUTROPHILS % (AUTO) 83.4 % (43.0-81.0); PLATELET COUNT (AUTO) 483 /CMM (150-450); RED BLOOD CELL COUNT(AUTO) 2.79 MIL/uL (4.5-6.0); WHITE BLOOD COUNT (AUTO) 13.7 K/uL (4.3-11.0)
[2019-04-15 08:28] LABS: CALCIUM, SERUM 9.2 mg/dL (8.5-10.1); CREATININE 0.8 mg/dL (0.6-1.3); MAGNESIUM 2.1 mg/dL (1.8-2.4); PHOSPHORUS 3.5 mg/dL (2.5-4.9); POTASSIUM 4.1 mmol/L (3.5-5.1)
[2019-04-15 12:00] VITALS: BP 126/64
[2019-04-15 16:00] VITALS: BP 144/64
--- NOTE | 2019-04-15 18:12 | NUR ---
[facility], PRINTED, SIGNED.
--- NOTE | 2019-04-15 18:17 | NUR ---
REMOVED CRUZ CATHETER. PT TOLERATED WELL. PT LEFT UNIT VIA GURNEY IN STABLE CONDITION AT 1824
== END 2019-04-15 18:50 | disposition short-term general hospital (02) | DRG 853 ==
LOC: ICU 20:01 → TELE-TD 04-04 18:24 → MEDSG1 04-05 12:21
PROVIDERS: ATTEND Nurse Practitioner Acute Care
PROC: 05H533Z Insertion of Infusion Device into Right Subclavian Vein, Percutaneous Approach (ICD-10-PCS; 2019-04-02)
PROC: 0QB30ZZ Excision of Left Pelvic Bone, Open Approach (ICD-10-PCS; principal; 2019-04-04)
PROC: 0KBP0ZZ Excision of Left Hip Muscle, Open Approach (ICD-10-PCS; 2019-04-04)
PROC: 0KBN0ZZ Excision of Right Hip Muscle, Open Approach (ICD-10-PCS; 2019-04-04)
PROC: 0KBW0ZZ Excision of Left Foot Muscle, Open Approach (ICD-10-PCS; 2019-04-04)
PROC: 0KBW0ZZ Excision of Left Foot Muscle, Open Approach (ICD-10-PCS; 2019-04-05)
PROC: 0KBN0ZZ Excision of Right Hip Muscle, Open Approach (ICD-10-PCS; 2019-04-07)
PROC: 0QB30ZZ Excision of Left Pelvic Bone, Open Approach (ICD-10-PCS; 2019-04-11)
PROC: 0KBP0ZZ Excision of Left Hip Muscle, Open Approach (ICD-10-PCS; 2019-04-11)
PROC: 0KBN0ZZ Excision of Right Hip Muscle, Open Approach (ICD-10-PCS; 2019-04-11)
DX: A41.9 Sepsis, unspecified organism (principal); L89.154 Pressure ulcer of sacral region, stage 4; J69.0 Pneumonitis due to inhalation of food and vomit; J96.21 Acute and chronic respiratory failure with hypoxia; I50.33 Acute on chronic diastolic (congestive) heart failure; L89.894 Pressure ulcer of other site, stage 4; L89.513 Pressure ulcer of right ankle, stage 3; L89.524 Pressure ulcer of left ankle, stage 4; L89.224 Pressure ulcer of left hip, stage 4; J44.0 Chronic obstructive pulmonary disease with (acute) lower respiratory infection; E87.0 Hyperosmolality and hypernatremia; J84.9 Interstitial pulmonary disease, unspecified; J21.9 Acute bronchiolitis, unspecified; K35.80 Unspecified acute appendicitis; E86.0 Dehydration; L89.892 Pressure ulcer of other site, stage 2; Z86.73 Personal history of transient ischemic attack (TIA), and cerebral infarction without residual deficits; D64.9 Anemia, unspecified; G30.9 Alzheimer's disease, unspecified; F02.80 Dementia in other diseases classified elsewhere, unspecified severity, without behavioral disturbance, psychotic disturbance, mood disturbance, and anxiety; M81.0 Age-related osteoporosis without current pathological fracture; Z85.46 Personal history of malignant neoplasm of prostate; Z85.118 Personal history of other malignant neoplasm of bronchus and lung; Z87.440 Personal history of urinary (tract) infections; Z93.1 Gastrostomy status; L89.210 Pressure ulcer of right hip, unstageable; M24.542 Contracture, left hand; M24.541 Contracture, right hand; L98.8 Other specified disorders of the skin and subcutaneous tissue; L90.5 Scar conditions and fibrosis of skin; L89.890 Pressure ulcer of other site, unstageable; K42.9 Umbilical hernia without obstruction or gangrene; E83.42 Hypomagnesemia; R13.10 Dysphagia, unspecified; E11.51 Type 2 diabetes mellitus with diabetic peripheral angiopathy without gangrene; E88.09 Other disorders of plasma-protein metabolism, not elsewhere classified; R93.5 Abnormal findings on diagnostic imaging of other abdominal regions, including retroperitoneum; E87.6 Hypokalemia; I11.0 Hypertensive heart disease with heart failure
CPT/HCPCS: 31720; 36415; 36569; 36600; 71045-TC; 71250-TC; 80048-TC; 80061-TC; 80076-TC; 80150; 80202-TC; 81000-TC; 82728-TC; 82784; 82803-TC; 82962-TC; 83540-TC; 83735-TC; 83880; 84100-TC; 84153-TC; 84154-TC; 84155; 84165; 84443-TC; 84484-TC; 85025-TC; 86334; 87070-TC; 87081-TC; 87086-TC; 87116; 87186-TC; 87206; 93307-TC; 94640-TC; 94799-TC; A6253; A6403; G0378; J0278; J1650; J1815; J2185; J2543; J3370; J3475; J3490; J7030; J7050; J7060; J7070; Q9967

== ENCOUNTER 2019-06-13 04:16 | Inpatient (IN) | payer MEDICARE, MEDICAID ==
[~2019-06-13] VITALS: Ht 180.3 cm; Wt 64.4 kg
[~2019-06-13 04:16] MED LIST: ACET1OOV6 NEB; ACET650S26 GT; ACID1TAB12 GT; AMIK250V14 IJ; EPOE1VIA12 SQ; FERR300L GT; FOLI0.8T2 GT; HEPA50008 SQ; HYDR-3802 GT; INSU100V10 SQ; KETO200T15 GT; LEVA0.6320 IH; MERO1VIA3 IV; METO5SOL GT; NUT.237L31 GT; VANC1PLA9 IV; VIT500LI GT
[2019-06-13 06:00] VITALS: BP 119/59
--- NOTE | 2019-06-13 06:00 | NUR ---
rn notes RECEIVED PATIENT DIRECT ADMIT FROM [facility] . PATIENT IS A/OX2 ON MASK 6LO2 WITH SPO2 OF 95%. IV LINES ARE PATIENT AND INTACT. SKIN ASSESSMENT IS DONE AND PICTURES ARE IN THE CHART. PATIENT HAS BEEN CLEANED AND PLACED IN THE ROOM 107. DAUGHTER IS AT THE BEDSIDE. GT IS IN PLACE CLAMPED. CRUZ CATH IS IN PLACE. ALL SAFETY MEASURES ARE IN PLACE, BED IN LOW, LOCKED POSITION , CALL LIGHT IN REACH. WILL CONTINUE TO MONITOR AND WILL GIVE REPORT TO AM RN FOR RETAIL COVERAGE MERCHANDISER LEAD.
--- NOTE | 2019-06-13 07:10 | NUR ---
RN NOTES RECEIVED PT ON BED , ALERT/ NON VERBAL, ON 6L FACE MASK, ON TELE ST HR IN 120'S, CRUZ DRANING TO GRAVITY, GT INTACT, R AC AND L WRIST AND R HAND IV SITES CLEAN, DRY AND INTACT , SR UP x3, CALL LIGHT WITHIN EASY REACH, BED LOCKED AND IN LOWEST POSITION , CONTINUE TO MONITOR
[2019-06-13 08:00] VITALS: BP 146/66
[2019-06-13] MEDS ORDERED: MAGNESIUM HYDROXIDE 30 ML UDC PO PRN (09:30)
[2019-06-13] MEDS ORDERED: ONDANSETRON HCL/PF 4 MG/2 ML VIAL IVP PRN (09:30)
[2019-06-13] MEDS ORDERED: Z GUARD REMEDY 2 OZ OINT TP PRN (09:30)
[2019-06-13] MEDS ORDERED: ZOLPIDEM TARTRATE 5 MG TABLET PO PRN (09:30)
[2019-06-13] MEDS ORDERED: HYDROCODONE/APAP 5/325MG 1 EACH TABLET PO PRN (09:30)
[2019-06-13] MEDS ORDERED: MAG HYDROX/AL HYDROX/SIMETH 30 ML UDC PO PRN (09:30)
[2019-06-13] MEDS: IV D5/0.45 NACL 1,000 ML IV PRN (09:32)
[2019-06-13 09:55] LABS: ABG OXYGEN SATURATION 97.4 % (92.0-98.5); ABG PCO2 42.1 mmHg (35.0-45.0); ABG PO2 103.8 mmHg (75.0-100.0); COHb 0.3 % (0.5-1.5); MetHb 1.1 % (0.0-1.5); SITE, ABG Right Brachial; VENT MODE, BG 5LSM
[2019-06-13] MEDS ORDERED: ALBUT2 NEB (09:57)
[2019-06-13] MEDS ORDERED: CARV6.252 GT (09:57)
[2019-06-13] MEDS ORDERED: ALLO100T GT (09:57)
[2019-06-13] MEDS ORDERED: DOCU-141 GT (09:57)
[2019-06-13] MEDS ORDERED: LANS30CA62 GT (09:57)
[2019-06-13] MEDS ORDERED: BISA10SU11 RC (09:57)
[2019-06-13] MEDS ORDERED: INSU100I4 SQ (09:57)
[2019-06-13] MEDS ORDERED: ENOX30DI5 SQ (09:57)
[2019-06-13] MEDS ORDERED: AMIN887L GT (09:57)
[2019-06-13] MEDS ORDERED: ZINC220C6 GT (09:57)
[2019-06-13] MEDS ORDERED: [UNRECOGNIZED DRUG - OTHER] (09:57)
[2019-06-13] MEDS ORDERED: BENEP GT (09:57)
[2019-06-13 10:20] LABS: BASOPHILS # (AUTO) 0.1 /CMM (0.0-0.2); BASOPHILS % (AUTO) 0.3 % (0.0-2.0); HEMATOCRIT 25 % (39-51); HEMOGLOBIN 7.8 g/dL (13.5-17.5); LYMPHOCYTES # (AUTO) 0.9 /CMM (0.8-4.8); LYMPHOCYTES % (AUTO) 3.8 % (20.0-44.0); MEAN CORPUSCULAR HGB CONC 32 g/dl (31.0-36.0); MEAN CORPUSCULAR VOLUME 87 fL (80-96); MONOCYTES # (AUTO) 0.7 /CMM (0.1-1.30); NEUTROPHILS # (AUTO) 22.2 /CMM (1.8-8.9); NEUTROPHILS % (AUTO) 92.9 % (43.0-81.0); PLATELET COUNT (AUTO) 296 /CMM (150-450); RED BLOOD CELL COUNT(AUTO) 2.86 MIL/uL (4.5-6.0)
[2019-06-13 10:35] LABS: ALANINE AMINOTRANSFERASE 15 U/L (12-78); ALBUMIN 1.6 g/dL (3.4-5.0); ALKALINE PHOSPHATASE 171 U/L (46-116); ASPARTATE AMINOTRANSFERASE 19 U/L (15-37); BILIRUBIN,TOTAL 0.3 mg/dL (0.2-1.0); CALCIUM, SERUM 8.8 mg/dL (8.5-10.1); CARBON DIOXIDE 34 mmol/L (21-32); CHLORIDE 105 mmol/L (98-107); CREATININE 1.4 mg/dL (0.6-1.3); GLUCOSE 137 mg/dL (74-106); POTASSIUM 4.5 mmol/L (3.5-5.1); SODIUM SERUM 143 mmol/L (136-145); TOTAL PROTEIN, SERUM 7.3 g/dL (6.4-8.2); UREA NITROGEN, BLOOD 40 mg/dL (7-18)
[2019-06-13] MEDS: HEPARIN SODIUM, PORCINE 5000 UNITS/1 ML VIAL SQ SCH ×2 (11:28→20:03)
[2019-06-13] MEDS ORDERED: SILVER NITRATE APPLICATOR 1 EA BOX TP ONE (11:30)
[2019-06-13] MEDS ORDERED: PIPERACILLIN /TAZOBACTAM 3.375 G in IV D5W 50 ML IV ONE (11:30)
[2019-06-13] MEDS ORDERED: LIDOCAINE 1%-EPI 1:100,000 50 ML VIAL IJ ONE (11:30)
[2019-06-13 12:00] VITALS: BP 109/71
--- NOTE | 2019-06-13 12:00 | NUR ---
RN NOTES VSS STABLE, SUPPORTIVE FAMILY AT THE BEDSIDE, CONTINUE TO MONITOR.
[2019-06-13] MEDS: IPRATROPIUM NEB FS 0.5 MG/2.5 ML AMPUL.NEB NEB SCH ×4 (12:08→23:17)
[2019-06-13] MEDS: ALBUTEROL HALF STRENGTH 1.25 MG/3 ML VIAL.NEB NEB SCH ×4 (12:08→23:17)
[2019-06-13 12:20] LABS: BAND % (MANUAL) 6 % (0.0-5.0); LYMPHOCYTES % (MANUAL) 8 % (16-48); MONOCYTES % (MANUAL) 3 % (0-11.0); NEUTROPHILS % (MANUAL) 83 (42-76)
[2019-06-13] MEDS: DAKINS QUARTER STRENGTH (0.125%) 480 ML BOTTLE TOP SCH (13:54)
[2019-06-13 16:00] VITALS: BP 100/56
--- NOTE | 2019-06-13 18:00 | NUR ---
RN NOTES NO SIGNIFICANT CHANGES NOTED ON THIS SHIFT , WILL ENDORSE TO MOTION PICTURE OPERATOR NURSE FOR CONTINUITY OF CARE .
[2019-06-13] MEDS ORDERED: FEE PK DOSING 1 MIN EA MC ONE (18:09)
[2019-06-13 20:00] VITALS: BP_SYST 112; BP_SYST 124; BP_DIAS 66; BP_DIAS 77
[2019-06-13] MEDS: VANCOMYCIN 1.25 GM in IV D5W 250 ML IV SCH (21:58)
[2019-06-13] MEDS: PIPERACILLIN /TAZOBACTAM 3.375 G in IV D5W 100 ML IV SCH (23:20)
[2019-06-14] VITALS: BP 137/67
[2019-06-14] MEDS: ALBUTEROL HALF STRENGTH 1.25 MG/3 ML VIAL.NEB NEB SCH ×6 (03:19→23:37)
[2019-06-14] MEDS: IPRATROPIUM NEB FS 0.5 MG/2.5 ML AMPUL.NEB NEB SCH ×6 (03:20→23:37)
[2019-06-14] MEDS: HEPARIN SODIUM, PORCINE 5000 UNITS/1 ML VIAL SQ SCH ×3 (03:56→18:42)
[2019-06-14] MEDS: IV D5/0.45 NACL 1,000 ML IV PRN (03:57)
[2019-06-14 04:00] VITALS: BP 115/52
[2019-06-14] MEDS: PIPERACILLIN /TAZOBACTAM 3.375 G in IV D5W 100 ML IV SCH ×3 (05:56→20:30)
--- NOTE | 2019-06-14 06:42 | NUR ---
WOUND CARE CONSULT WOUND CARE RECEIVED CONSULT FOR WOUNDS. WOUND CARE WILL DEFER CONSULT AND ALL TREATMENT PLANS TO PLASTIC SURGICAL TEAM INCLUDING DPJeison BARNES WHO ARE ALL FOLLOWING THIS PATIENT. PATIENT WITH ARIELLA AT 11, ALL PRESSURE ULCER PREVENTION MEASURES ARE NOTED TO BE IN PLACE AT THIS TIME. WILL SEE PRN.
[2019-06-14 07:12] LABS: BASOPHILS # (AUTO) 0.1 /CMM (0.0-0.2); BASOPHILS % (AUTO) 0.3 % (0.0-2.0); EOSINOPHILS % (AUTO) 0.9 % (0.0-6.0); HEMATOCRIT 24 % (39-51); HEMOGLOBIN 7.6 g/dL (13.5-17.5); LYMPHOCYTES % (AUTO) 4.7 % (20.0-44.0); MEAN CORPUSCULAR HGB CONC 31 g/dl (31.0-36.0); MEAN CORPUSCULAR VOLUME 88 fL (80-96); MONOCYTES # (AUTO) 0.8 /CMM (0.1-1.30); MONOCYTES % (AUTO) 3.8 % (2.0-12.0); NEUTROPHILS # (AUTO) 19.6 /CMM (1.8-8.9); NEUTROPHILS % (AUTO) 90.3 % (43.0-81.0); PLATELET COUNT (AUTO) 266 /CMM (150-450); RED BLOOD CELL COUNT(AUTO) 2.77 MIL/uL (4.5-6.0); WHITE BLOOD COUNT (AUTO) 21.7 K/uL (4.3-11.0)
--- NOTE | 2019-06-14 07:30 | NUR ---
DRY DRUG WORKER CLOSING NOTE PATIENT IN BED WITH NO SIGN OF ANY DISTRESS OR DISCOMFORT. PATIENT TOLERATING 5L OF O2 ON THE MASK WITH NO SIGN OF SOB. PATIENTS CRUZ IS PATENT WITH NO OBSTRUCTION. PATIENTS IV ON THE RAC IS RUNNING WITH D51/2NS. ALL WOUNDS WERE CARED FOR ORDERED. ALL SAFETY PRECAUTIONS APPLIED. ENDORSED PATIENT TO MORNING SHIFT NURSE FOR MITESH.
[2019-06-14 07:57] LABS: CALCIUM, SERUM 9.2 mg/dL (8.5-10.1); CARBON DIOXIDE 30 mmol/L (21-32); CHLORIDE 104 mmol/L (98-107); CREATININE 1.4 mg/dL (0.6-1.3); GLUCOSE 113 mg/dL (74-106); PHOSPHORUS 3.2 mg/dL (2.5-4.9); POTASSIUM 4.2 mmol/L (3.5-5.1); SODIUM SERUM 143 mmol/L (136-145); UREA NITROGEN, BLOOD 35 mg/dL (7-18)
[2019-06-14 08:00] VITALS: BP_SYST 114; BP_SYST 82; BP_DIAS 29; BP_DIAS 46
--- NOTE | 2019-06-14 08:00 | NUR ---
TELE1/RN AM SHIFT INITIAL NOTES RECEIVED PT AWAKE IN BED, PT A/O X 1, MUMBLES WORDS. NO ACUTE RESPIRATORY DISTRESS NOTED. ON COOL AEROSOL WITH 2L OF O2, 28% FIO2, RESPIRATIONS EVEN & UNLABORED, DIMINISHED LUNG SOUNDS. GT IS CLAMP WITH MINIMAL GASTRIC RESIDUAL, CRUZ CATHETER INTACT WITH YELLOW URINE OUT. ON GOING IV INFUSION OF D51/2NS @ 75CC/HR, IV SITE PATENT WITH NO S/S OF INFECTION. PT IS COMFORTABLE, SCHEDULED AM MEDS TO BE GIVEN. CL WITHIN REACHED AND SAFETY MAINTAINED. ON GOING MONITORING. Addendum: 06/14/19 at 1052 by ABRAHAM MARTÍNEZ RN ADDENDUM: ON TELE MONITORING, SINUS TACHY, HR 102.
[2019-06-14] MEDS: PANTOPRAZOLE 40 MG TABLET.DR PO SCH (08:44)
[2019-06-14] MEDS: DAKINS QUARTER STRENGTH (0.125%) 480 ML BOTTLE TOP SCH (08:44)
--- NOTE | 2019-06-14 09:02 | NUR ---
Residual check at 0900, 10mls noted. Patient received 70mls of free water with medication administration. Addendum: 06/14/19 at 0905 by MELY INGRAM RN Amended: Links added.
[2019-06-14 09:42] LABS: CHOLESTEROL 103 mg/dL (<200); HDL CHOLESTEROL 38 mg/dL (40-60); LDL 51 mg/dL (0-99); THYROID STIMULATING HORMONE 0.958 uIU/mL (0.358-3.74); TRIGLYCERIDES 74 mg/dL (30-150)
[2019-06-14] MEDS: THERAHONEY GEL 1.5 OZ TUBE TP SCH (10:01)
[2019-06-14 12:00] VITALS: BP 104/48
--- NOTE | 2019-06-14 12:00 | NUR ---
MS1/RN NOON ROUNDS PT TURNED AND REPOSITIONED. NO CHANGE OF CONDITION. MONITORING CONTINUED.
[2019-06-14 14:58] LABS: BASOPHILS % (AUTO) 0.2 % (0.0-2.0); EOSINOPHILS % (AUTO) 1.4 % (0.0-6.0); HEMATOCRIT 24 % (39-51); HEMOGLOBIN 7.4 g/dL (13.5-17.5); LYMPHOCYTES # (AUTO) 1.1 /CMM (0.8-4.8); LYMPHOCYTES % (AUTO) 6.6 % (20.0-44.0); MEAN CORPUSCULAR HGB CONC 32 g/dl (31.0-36.0); MEAN CORPUSCULAR VOLUME 88 fL (80-96); MONOCYTES # (AUTO) 0.7 /CMM (0.1-1.30); MONOCYTES % (AUTO) 4.3 % (2.0-12.0); NEUTROPHILS # (AUTO) 14.4 /CMM (1.8-8.9); NEUTROPHILS % (AUTO) 87.5 % (43.0-81.0); PLATELET COUNT (AUTO) 277 /CMM (150-450); RED BLOOD CELL COUNT(AUTO) 2.66 MIL/uL (4.5-6.0)
[2019-06-14] MEDS: VANCOMYCIN 1.25 GM in IV D5W 250 ML IV SCH (15:06)
[2019-06-14 15:07] LABS: WHITE BLOOD COUNT (AUTO) 16.4 K/uL (4.3-11.0)
[2019-06-14 15:16] LABS: CALCIUM, SERUM 9.2 mg/dL (8.5-10.1); CARBON DIOXIDE 29 mmol/L (21-32); CHLORIDE 105 mmol/L (98-107); CREATININE 1.4 mg/dL (0.6-1.3); GLUCOSE 108 mg/dL (74-106); POTASSIUM 4.3 mmol/L (3.5-5.1); SODIUM SERUM 141 mmol/L (136-145); UREA NITROGEN, BLOOD 31 mg/dL (7-18)
[2019-06-14 16:00] VITALS: BP 114/55
[2019-06-14] MEDS: PROSOURCE / PROSTAT (PYXIS) 30 ML UDC GT SCH (16:03)
[2019-06-14] MEDS: GLUCERNA 1.2 1,000 ML BOTTLE NG PRN (16:03)
[2019-06-14 17:40] LABS: BILIRUBIN,URINE NEGATIVE (NEGATIVE); BLOOD, URINE LARGE Ery/uL (NEGATIVE); COLOR,URINE YELLOW (YELLOW); KETONES,URINE NEGATIVE (NEGATIVE); LEUKOCYTE ESTERASE ,URINE SMALL (NEGATIVE); NITRITE, URINE NEGATIVE (NEGATIVE); PH,URINE 7.5 (5.0-8.0); PROTEIN,URINE 30 mg/dl (NEGATIVE); UGLUCOSE NEGATIVE (NEGATIVE); UROBILINOGEN,URINE 0.2 EU/dL (0.2)
[2019-06-14 17:41] LABS: APPEARANCE,URINE HAZY (CLEAR)
--- NOTE | 2019-06-14 17:41 | NUR ---
MS1/RN AFTERNOON ROUNDS PM CARE PROVIDED. NO CHANGE OF CONDITION.
[2019-06-14 17:54] LABS: BACTERIA,URINE 1+ /HPF (None Seen); RBC,URINE TOO NUMEROUS TO COUN /HPF (0-2)
[2019-06-14 17:55] LABS: SQUAMOUS EPITHELIAL CELL,UR Few /HPF (None Seen)
--- NOTE | 2019-06-14 19:31 | NUR ---
MS RN OPENING NOTE RECEIVED PATIENT IN BED WITH NO SIGN OF DISTRESS. PATIENT ON 5L OF O2 WITH MASK NO SIGN OF SOB. PATIENT IS RECEIVING GLUCERNA AT 65ML/HR NO SIGNS OF NO TOLERATION. PATIENT IS OBTUNDED BUT RESPONDS TO NAME AND TOUCH. PATIENT IS VERBAL BUT DIFFICULT TO UNDERSTAND. ALL SAFETY PRECAUTIONS HAVE BEEN APPLIED. WILL CONTINUE TO MONITOR.
--- NOTE | 2019-06-14 19:37 | NUR ---
MS1/RN AM SHIFT END NOTES NO ACUTE CHANGE OF CONDITION NOTED DURING THE SHIFT. ALL NEEDS MET. PT ENDORSED TO PM NURSE TO CONTINUE CARE. CL WITHIN REACHED AND SAFETY MAINTAINED.
[2019-06-14 20:00] VITALS: BP 114/35
[2019-06-15 02:00] VITALS: BP 109/51
[2019-06-15] MEDS: HEPARIN SODIUM, PORCINE 5000 UNITS/1 ML VIAL SQ SCH ×3 (03:17→19:26)
[2019-06-15] MEDS: IPRATROPIUM NEB FS 0.5 MG/2.5 ML AMPUL.NEB NEB SCH ×6 (03:43→23:35)
[2019-06-15] MEDS: ALBUTEROL HALF STRENGTH 1.25 MG/3 ML VIAL.NEB NEB SCH ×6 (03:43→23:35)
[2019-06-15 04:00] VITALS: BP_SYST 110; BP_DIAS 57; BP_DIAS 59
[2019-06-15] MEDS: PIPERACILLIN /TAZOBACTAM 3.375 G in IV D5W 100 ML IV SCH ×3 (04:29→20:09)
--- NOTE | 2019-06-15 07:20 | NUR ---
RN OPENING NOTES REPORT RECEIVED FROM BUGGYMAN RN. PT IN BED WITH G-TUBE RUNNING AT 65 MLS/HR HOB ELEVATED. PT ON 2L O2 VIA NC AND SEEMS TO BE TOLERATING WELL. BED IS LOCKED AND IN LOWEST POSITION WILL CONTINUE TO MONITOR.
--- NOTE | 2019-06-15 07:26 | NUR ---
PLACED INTO NASAL CANNULA @ 1 LPM O2 FLOW. SPO2 98% - 100% rn NOTIFIED ON CHANGES. Addendum: 06/15/19 at 0727 by WESLEY NAILS RT Amended: Links added.
--- NOTE | 2019-06-15 07:55 | NUR ---
MS RN CLOSING NOTE PATIENT IN BED WITH OXYGEN AT 2L WITH O2 SAT OF 98%. PATIENT HAS NO SIGN OF ANY DISTRESS. CRUZ PATENT NO OBSTRUCTION. GTUBE RUNNING WITH GLUCERNA AT 65ML/HR. TOLERATING WELL NO RESIDUAL. ALL WOUND CARE WAS PROVIDED ORDERED. ALL SAFETY PRECAUTION APPLIED. ENDORSED PATIENT TO MORNING SHIFT NURSE.
[2019-06-15 08:00] VITALS: BP 129/51
[2019-06-15] MEDS: VANCOMYCIN 1.25 GM in IV D5W 250 ML IV SCH (08:00)
--- NOTE | 2019-06-15 08:00 | NUR ---
HELD VANCOMYCIN DOSE AT THE RECOMMENDATION OF PHARMACY DUE TO ELEVATED TROUGH LEVELS.
[2019-06-15 08:04] LABS: CALCIUM, SERUM 8.9 mg/dL (8.5-10.1); CARBON DIOXIDE 32 mmol/L (21-32); CHLORIDE 105 mmol/L (98-107); CREATININE 1.4 mg/dL (0.6-1.3); GLUCOSE 133 mg/dL (74-106); POTASSIUM 3.7 mmol/L (3.5-5.1); SODIUM SERUM 143 mmol/L (136-145); UREA NITROGEN, BLOOD 29 mg/dL (7-18)
[2019-06-15] MEDS: THERAHONEY GEL 1.5 OZ TUBE TP SCH (08:41)
[2019-06-15] MEDS: PANTOPRAZOLE 40 MG TABLET.DR PO SCH (08:41)
[2019-06-15] MEDS: DAKINS QUARTER STRENGTH (0.125%) 480 ML BOTTLE TOP SCH (08:41)
[2019-06-15] MEDS: PROSOURCE / PROSTAT (PYXIS) 30 ML UDC GT SCH ×2 (08:42→16:09)
--- NOTE | 2019-06-15 09:06 | NUR ---
Gastric residual 10 mls prior to medication administration, 100 mls of free water given with medication administration. Addendum: 06/15/19 at 0907 by MELY INGRAM RN Amended: Links added.
[2019-06-15] MEDS ORDERED: DEXTROSE 50%-WATER 50 ML DISP.SYRIN IV PRN (10:30)
[2019-06-15] MEDS: GLUCERNA 1.2 1,000 ML BOTTLE NG PRN (11:38)
[2019-06-15] MEDS: BLOOD SUGAR DIAGNOSTIC 1 EACH STRIP IN SCH ×2 (12:31→17:39)
[2019-06-15 16:00] VITALS: BP 130/61
--- NOTE | 2019-06-15 16:43 | NUR ---
SPOKE WITH PT'S DAUGHTER WHO IS POA. PER REQUEST TV IS NOT TO BE TURNED OFF FOR PT'S COMFORT.
--- NOTE | 2019-06-15 19:20 | NUR ---
CHANGE OF SHIFT REPORT Patient in bed, mumbles. Oriented to self only. Abdomen presence of Gtube with Gtube feeding at 65ml/hr. Frank cath to gravity. Patient is contracted on BUE, BLE. Will cont to reposition as schedule. Fall, aspiration, skin precaution maintained.
[2019-06-15] MEDS: IV 1/2NS 1000 ML 1,000 ML IV PRN (19:50)
[2019-06-15 20:36] VITALS: BP 109/61
[2019-06-16] MEDS: BLOOD SUGAR DIAGNOSTIC 1 EACH STRIP IN SCH ×5 (00:10→23:14)
[2019-06-16] MEDS: INSULIN REGULAR, HUMAN 100 UNIT/ML 3 ML VIAL SQ PRN ×4 (00:12→23:14)
[2019-06-16] MEDS: GLUCERNA 1.2 1,000 ML BOTTLE NG PRN ×2 (02:36→23:15)
[2019-06-16] MEDS: HEPARIN SODIUM, PORCINE 5000 UNITS/1 ML VIAL SQ SCH ×3 (03:05→20:13)
[2019-06-16] MEDS: ALBUTEROL HALF STRENGTH 1.25 MG/3 ML VIAL.NEB NEB SCH ×6 (03:39→23:54)
[2019-06-16] MEDS: IPRATROPIUM NEB FS 0.5 MG/2.5 ML AMPUL.NEB NEB SCH ×6 (03:39→23:54)
[2019-06-16] MEDS: PIPERACILLIN /TAZOBACTAM 3.375 G in IV D5W 100 ML IV SCH ×2 (04:23→12:31)
[2019-06-16 04:55] VITALS: BP 133/59
--- NOTE | 2019-06-16 06:13 | NUR ---
END OF SHIFT REPORT Patient in bed, remains on supplemental oxygen at 2LPM via NC. IV antibiotic as scheduled. Afebrile overnight. Gtube feeding at 65 ml/hr tolerating well. On Heparin injection with s/s of bleeding. Wound care done, had BM this shift. Frank cath to gravity with adequate output. Fall/aspiration/skin precaution maintained.
[2019-06-16 06:37] LABS: BASOPHILS % (AUTO) 0.3 % (0.0-2.0); EOSINOPHILS % (AUTO) 2.4 % (0.0-6.0); HEMATOCRIT 24 % (39-51); HEMOGLOBIN 7.8 g/dL (13.5-17.5); LYMPHOCYTES # (AUTO) 1.1 /CMM (0.8-4.8); LYMPHOCYTES % (AUTO) 10.6 % (20.0-44.0); MEAN CORPUSCULAR HGB CONC 32 g/dl (31.0-36.0); MEAN CORPUSCULAR VOLUME 88 fL (80-96); MONOCYTES # (AUTO) 0.7 /CMM (0.1-1.30); NEUTROPHILS # (AUTO) 8.4 /CMM (1.8-8.9); NEUTROPHILS % (AUTO) 79.7 % (43.0-81.0); PLATELET COUNT (AUTO) 273 /CMM (150-450); RED BLOOD CELL COUNT(AUTO) 2.74 MIL/uL (4.5-6.0); WHITE BLOOD COUNT (AUTO) 10.5 K/uL (4.3-11.0)
[2019-06-16 06:43] LABS: CALCIUM, SERUM 8.8 mg/dL (8.5-10.1); CREATININE 1.3 mg/dL (0.6-1.3); POTASSIUM 3.9 mmol/L (3.5-5.1)
--- NOTE | 2019-06-16 07:15 | NUR ---
MS RN NOTES PATIENT IN BED EYES CLOSED, EASY TO AROUSE. RESPOND TO VERBAL AND TACTILE STIMULI. NO ACUTE DISTRESS NOTED. BREATHING UNLABORED. NO SOB NOTED. ON TUBE FEEDING @ 65ML PER HOUR. CRUZ CATHETER INTACT DRAINING WELL. SAFETY MEASURES IN PLACE. CALL LIGHT WITHIN REACH . WILL CONTINUE TO MONITOR ACCORDINGLY.
[2019-06-16] MEDS ORDERED: LIDOCAINE 1%-EPI 1:100,000 50 ML VIAL IJ ONE (07:30)
[2019-06-16] MEDS ORDERED: SILVER NITRATE APPLICATOR 1 EA BOX TP SCH (07:30)
[2019-06-16] MEDS: PANTOPRAZOLE 40 MG TABLET.DR PO SCH (07:48)
[2019-06-16 08:00] VITALS: BP 110/51
[2019-06-16] MEDS: DAKINS QUARTER STRENGTH (0.125%) 480 ML BOTTLE TOP SCH (08:35)
[2019-06-16] MEDS: THERAHONEY GEL 1.5 OZ TUBE TP SCH (08:35)
[2019-06-16] MEDS: PROSOURCE / PROSTAT (PYXIS) 30 ML UDC GT SCH ×2 (09:28→16:28)
[2019-06-16 16:00] VITALS: BP 142/82
--- NOTE | 2019-06-16 18:48 | NUR ---
MS RN NOTES PATIENT IN BED EYES CLOSED, EASY TO AROUSE. RESPOND TO VERBAL AND TACTILE STIMULI. NO ACUTE DISTRESS NOTED. BREATHING UNLABORED. NO SOB NOTED. ON TUBE FEEDING @ 65ML PER HOUR. CRUZ CATHETER INTACT DRAINING WELL. NEEDS ATTENDED AND ANTICIPATED. KEPT CLEAN DRY AND COMFORTABLE. REPOSITIONED EVERY 2 HOURS AND NEEDED. RIGHT HIP DEBRIDEMENT DONE BY AIMEE FLOWERS PAC TODAY. SAFETY MEASURES IN PLACE. CALL LIGHT WITHIN REACH . WILL ENDORSE TO NIGHT NURSE FOR CONTINUITY OF CARE.
--- NOTE | 2019-06-16 19:30 | NUR ---
learning disabilities resource teacher: received report from wong leal. pt in bed, awake, a/o to self only. on 1l oxygen via nc, respirations even and unlabored. noted with periodic episode of coughing, suction set up secured. pt on aspirations and fall precaution. isolation for mrsa respiratory culture and wound ecoli/esbl. ppe utilized. iv access patent and flushing well, infusing with 1/2 ns at 50ml/hr. pt has gtube feeding in placed, glucerna 1.2 at 65ml/hr. pt s/p debridement of right hip wound, by dr ellison dressing c/d/i, no active bleeding noted. pt very contracted. has garner catheter in placed, draining into yellow colored urine, draining by gravity. kept hob 40 degrees as ordered. safety precautions for fall initiated, call light in reach, will continue monitoring pt.
[2019-06-16 20:00] VITALS: BP 136/76
[2019-06-16] MEDS ORDERED: VANCOMYCIN 0.75 GM in IV D5W 250 ML IV SCH (20:00)
--- NOTE | 2019-06-16 20:00 | NUR ---
rn notes/gtube/suction/oral care: check gtube patentcy, able to flush with water without any resistance. abdomen soft tot ouch with active bowel sound heard upon auscultations. nando valve changed at this time. also pt noted to have weak cough able to cough out secretions with help of suction. suction pt orally, then oral care provided afterwards. pt tolerated well.
--- NOTE | 2019-06-16 20:30 | NUR ---
rn notes/suction/oral care: suction pt's secretion/suction orally. noted thick whitish secretions moderate in amount. oral care provided afterwards. will continue monitoring pt.
[2019-06-16] MEDS ORDERED: MEROPENEM 1 G in IV NS 0.9% 100 ML IV ONE (21:00)
[2019-06-16] MEDS: IV 1/2NS 1000 ML 1,000 ML IV PRN (21:57)
--- NOTE | 2019-06-16 22:00 | NUR ---
rn notes: suction pt orally, thick mucous, ora care provided afterwards.
--- NOTE | 2019-06-16 23:15 | NUR ---
rn notes/blood glucose: check blood glucose at this time, result is 114, no insulin coverage given per sliding scale. will continue to monitor for any s/s of hypoglycemia.
[2019-06-17] MEDS: HEPARIN SODIUM, PORCINE 5000 UNITS/1 ML VIAL SQ SCH ×2 (03:17→11:47)
--- NOTE | 2019-06-17 03:40 | NUR ---
rn notes: new suction set up secured. new irrigation tray provided. suction pt orally, oral care provided afterwards.
[2019-06-17 04:00] VITALS: BP 127/64
[2019-06-17] MEDS: ALBUTEROL HALF STRENGTH 1.25 MG/3 ML VIAL.NEB NEB SCH ×4 (04:08→15:45)
[2019-06-17] MEDS: IPRATROPIUM NEB FS 0.5 MG/2.5 ML AMPUL.NEB NEB SCH ×4 (04:08→15:45)
--- NOTE | 2019-06-17 05:00 | NUR ---
rn notes/wound care: wound care treatment provided at this time. followed wound care order tx by . skin prep applied, prior to application of paper tape.
[2019-06-17] MEDS: BLOOD SUGAR DIAGNOSTIC 1 EACH STRIP IN SCH ×2 (06:08→11:47)
[2019-06-17] MEDS: INSULIN REGULAR, HUMAN 100 UNIT/ML 3 ML VIAL SQ PRN ×2 (06:10→13:00)
--- NOTE | 2019-06-17 06:11 | NUR ---
rn notes/blood glucose 116: blood glucose 116, no insulin coverage given per sliding scale.
--- NOTE | 2019-06-17 06:48 | NUR ---
end of shift report: pt remains on oxygen via nc, respirations even and unlabored. spo2 remains 95-97%. iv access remains patent and flushing well, infusing with ivf as ordered. no s/s of iv infiltration noted. gtube remains patent and infusing with glucerna 1.2 at 65ml/hr. ble kept offloaded on pillows, pillow placed in between legs as pt very contracted. garner bag emptied, bag draining to gravity. wound dressing remains c/d/i, no active bleeding noted. suction pt prn, oral care provided. vs remains stable, needs attended. ppe utilized for isolation pt. dc planning back to snf. safety precautions for fall remains engaged, call light in reach, will endorse to day rn for continuity of care.
[2019-06-17 06:55] LABS: CALCIUM, SERUM 9.3 mg/dL (8.5-10.1); CREATININE 1.1 mg/dL (0.6-1.3); POTASSIUM 4.1 mmol/L (3.5-5.1)
[2019-06-17 06:57] LABS: BASOPHILS % (AUTO) 0.4 % (0.0-2.0); EOSINOPHILS % (AUTO) 2.8 % (0.0-6.0); HEMATOCRIT 23 % (39-51); HEMOGLOBIN 7.5 g/dL (13.5-17.5); LYMPHOCYTES # (AUTO) 1.3 /CMM (0.8-4.8); LYMPHOCYTES % (AUTO) 13.8 % (20.0-44.0); MEAN CORPUSCULAR HGB CONC 32 g/dl (31.0-36.0); MEAN CORPUSCULAR VOLUME 87 fL (80-96); MONOCYTES # (AUTO) 0.7 /CMM (0.1-1.30); MONOCYTES % (AUTO) 7.4 % (2.0-12.0); NEUTROPHILS # (AUTO) 7.1 /CMM (1.8-8.9); NEUTROPHILS % (AUTO) 75.6 % (43.0-81.0); PLATELET COUNT (AUTO) 308 /CMM (150-450); RED BLOOD CELL COUNT(AUTO) 2.67 MIL/uL (4.5-6.0); WHITE BLOOD COUNT (AUTO) 9.5 K/uL (4.3-11.0)
[2019-06-17] MEDS: PANTOPRAZOLE 40 MG TABLET.DR PO SCH (07:44)
--- NOTE | 2019-06-17 07:46 | NUR ---
MS RN OPENING NOTES RECEIVED PATIENT IN BED ALERT AND AWAKE, ORIENTED TO SELF. ABLE TO RESPONSE TO SIMPLE QUESTIONS. HOB ELEVATED. C/O PAIN PRN PAIN MED GIVEN ORDERED MATTHIAS WELL. GT INTACT AND PATENT, NO RESIDUAL NOTED. PLACEMENT CHECKED UPON AUSCULTATION, MATTHIAS GLUCERNA 1.2 @ 65ML/HR. RT AC # 20 INFUSING 1/2 NS @ 50ML/HR MATTHIAS WELL. RESTING COMFORTABLY IN BED. BED IN LOWEST POSITION, LOCKED. CALL LIGHT WITHIN REACH. BED SIDERAILS UP X2.
[2019-06-17 08:00] VITALS: BP 137/50
[2019-06-17] MEDS: THERAHONEY GEL 1.5 OZ TUBE TP SCH (08:40)
[2019-06-17] MEDS: DAKINS QUARTER STRENGTH (0.125%) 480 ML BOTTLE TOP SCH (08:40)
[2019-06-17] MEDS: PROSOURCE / PROSTAT (PYXIS) 30 ML UDC GT SCH (08:45)
[2019-06-17] MEDS: ACETAMINOPHEN 325 MG TABLET PO PRN ×2 (08:50→14:29)
[2019-06-17] MEDS ORDERED: MEROPENEM 1 G in IV NS 0.9% 100 ML IV SCH (09:00)
[2019-06-17] MEDS ORDERED: VANC1FRO2 IV (10:58)
[2019-06-17] MEDS ORDERED: MERO1PIG IV (10:58)
[2019-06-17 12:00] VITALS: BP 117/64
[2019-06-17] MEDS: IV 1/2NS 1000 ML 1,000 ML IV PRN (12:44)
[2019-06-17] MEDS: GLUCERNA 1.2 1,000 ML BOTTLE NG PRN (13:17)
[2019-06-17 16:00] VITALS: BP 129/71
--- NOTE | 2019-06-17 16:45 | NUR ---
MS RN NOTES MIDLINE JAYA # [id number] INSERTED BY PICC NURSE TOLL WELL, INTACT AND PATENT. CONNIE HOBSON AT [place] AWARE.
--- NOTE | 2019-06-17 17:19 | NUR ---
MS RN CLOSING DISCHARGE NOTES PATIENT WITH ORDER FOR DISCHARGE. CALLED AND SPOKE TO CONNIE HOBSON AT [facility] WHERE PATIENT PREVIOUSLY RESIDED IN AND GAVE REPORT. DAUGHTER KODI ALSO AWARE OF PATIENT'S RETURN TO [place]. ALERT TO SELF, ABLE TO ANSWER SIMPLE QUESTIONS. DISCHARGE INSTRUCTIONS GIVEN OVER THE PHONE TO CONNIE HOBSON ALONG WITH REPORT GIVEN FOR CONTINUATION OF CARE. GT INTACT AND PATENT, WITH PLACEMENT CHECKED VIA AUSCULTATION. JAYA MIDLINE INTACT AND PATENT. PATIENT HAD NO BELONGINGS EXCEPT FOR HOSPITAL GOWN. [facility]-C[facility] AND ORAL CARE DONE PRIOR TO LEAVING HOSPITAL. DISCHARGE PACKET GIVEN TO EMT. PATIENT LEFT IN STABLE CONDITION VIA GURNEY VIA AMB[facility]ANZE TRANSPORT ACCOMPANIED BY 2 EMT.
== END 2019-06-17 17:30 | DRG 710 ==
LOC: TELE-TD 05:38 → TELE1 17:46 → MEDSG1 06-14 11:27
PROVIDERS: ADMIT Student in an Organized Health Care Education/Training Program; ATTEND Nurse Practitioner Acute Care
DX: A41.9 Sepsis, unspecified organism (principal); J69.0 Pneumonitis due to inhalation of food and vomit; N17.0 Acute kidney failure with tubular necrosis; J96.01 Acute respiratory failure with hypoxia; E43 Unspecified severe protein-calorie malnutrition; L89.154 Pressure ulcer of sacral region, stage 4; G92 Toxic encephalopathy; L89.224 Pressure ulcer of left hip, stage 4; R53.2 Functional quadriplegia; I69.351 Hemiplegia and hemiparesis following cerebral infarction affecting right dominant side; L89.214 Pressure ulcer of right hip, stage 4; I11.0 Hypertensive heart disease with heart failure; E11.621 Type 2 diabetes mellitus with foot ulcer; I50.32 Chronic diastolic (congestive) heart failure; D63.8 Anemia in other chronic diseases classified elsewhere; Z93.1 Gastrostomy status; E86.0 Dehydration; F02.80 Dementia in other diseases classified elsewhere, unspecified severity, without behavioral disturbance, psychotic disturbance, mood disturbance, and anxiety; M81.0 Age-related osteoporosis without current pathological fracture; R13.10 Dysphagia, unspecified; Z85.118 Personal history of other malignant neoplasm of bronchus and lung; Z85.46 Personal history of malignant neoplasm of prostate; J44.9 Chronic obstructive pulmonary disease, unspecified; F09 Unspecified mental disorder due to known physiological condition; M24.562 Contracture, left knee; M24.561 Contracture, right knee; M24.542 Contracture, left hand; M24.541 Contracture, right hand; M62.50 Muscle wasting and atrophy, not elsewhere classified, unspecified site; E11.51 Type 2 diabetes mellitus with diabetic peripheral angiopathy without gangrene; L97.429 Non-pressure chronic ulcer of left heel and midfoot with unspecified severity; L97.529 Non-pressure chronic ulcer of other part of left foot with unspecified severity; E11.69 Type 2 diabetes mellitus with other specified complication; M86.8X8 Other osteomyelitis, other site; G30.9 Alzheimer's disease, unspecified; Z79.4 Long term (current) use of insulin; Z68.1 Body mass index [BMI] 19.9 or less, adult
CPT/HCPCS: 31720; 36415; 36600; 71045-TC; 73521; 80048-TC; 80053-TC; 80061-TC; 80202-TC; 81000-TC; 82803-TC; 82962-TC; 83605-TC; 83735-TC; 84100-TC; 84443-TC; 85025-TC; 87040-TC; 87070-TC; 87081-TC; 87086-TC; 87186-TC; 94640-TC; 94799-TC; A6253; A6403; G0378; J1644; J1815; J2185; J2543; J3370; J3490; J7030; J7060